=== PATIENT | female | born 1950 | race American Indian/Alaskan Native ===

== ENCOUNTER → 2017-10-22 16:59 | Outpatient (CLI) | payer MEDICARE, OTHER, SELFPAY ==
[2017-10-22 18:08] LABS: AST(SGOT) 14 U/L (15-37); Alanine Aminotransfer ALT/SGPT 21 U/L (13-56); Alkaline Phosphatase 96 U/L (45-117); Globulin 3.2 g/dL (2.2-4.2); Protein, Total 7.2 g/dL (6.4-8.2)
== END ==
PROVIDERS: Family Provider Family Medicine; PCP Family Medicine; Visit Provider Family Medicine
DX: K75.9 Inflammatory liver disease, unspecified (principal)
CPT/HCPCS: 36415; 80076

== ENCOUNTER → 2018-02-04 14:03 | Outpatient (CLI) | payer MEDICARE, OTHER, SELFPAY ==
[2014-09-22 04:00] VITALS: BMI 34.2
--- NOTE | 2018-02-04 14:14 | RAD_ITS ---
STUDY: X-RAY - FACIAL BONES REASON FOR STUDY: Female, 67 years old. Left facial pain following a fall. TECHNIQUE: 3 view(s) of the facial bones. COMPARISON: None. FINDINGS: Normal bilateral frontozygomatic and zygomatic-temporal arches. Normal bilateral medial and inferior orbital melendrez. Normal bilateral orbits. Normal visualized nasal bones. Normal anterior nasal spine. The remaining visualized osseous structures are normal. Normal visualized paranasal sinuses. RAD/Facial Bones min 3 Views IMPRESSION: Normal x-ray examination of the facial bones. Electronically Signed: Nicholas España MD at 14:36 EST Tel [phone], Service support ,
== END ==
PROVIDERS: Family Provider Family Medicine; PCP Family Medicine; Referring Provider Family Medicine; Visit Provider Family Medicine
DX: R51 Headache (principal)
CPT/HCPCS: 70150

== ENCOUNTER → 2018-02-11 10:14 | Outpatient (CLI) | payer MEDICARE, SELFPAY ==
[2014-09-22 04:00] VITALS: BMI 34.2
--- NOTE | 2018-02-11 10:19 | BI_ITS ---
MAMMOGRAPHY - BILATERAL SCREENING 3-D RAQUEL SYNTHESIS REASON FOR EXAM: Female, 67 years old. Bilateral Screening 3-D tomosynthesis PERTINENT HISTORY: No significant family history. TECHNIQUE: 2-D mammograms and 3-D Raquel synthesis of the breast (s) were performed. CAD was performed. COMPARISON: None. FINDINGS: The breast composition is heterogeneous fibroglandular pleural tissue which may obscure tiny masses. No obvious spiculated lesion, microcalcifications, skin thickening or nipple retraction. Benign calcifications present bilaterally. Benign-appearing lymph nodes seen in the axillary areas bilaterally. Impression negative distal mammography of both breasts BI/SCREENING MAMM (CAD), BILAT IMPRESSION: No mammographic signs of malignancy. Routine yearly mammograms recommended. ASSESSMENT CATEGORY: BIRADS Category 1: Negative. A letter regarding these results will be sent to the patient by the facility within 30 days. FOLLOW UP RECOMMENDATION: Yearly follow up mammogram recommended. (A) Approximately 10% of breast cancers are not detected by mammography. A normal mammogram should not delay biopsy of a clinically suspicious abnormality. Electronically Signed: Amilcar Patiño, at 14:23 EST Tel , Service support ,
== END ==
PROVIDERS: Family Provider Family Medicine; PCP Family Medicine; Visit Provider Family Medicine
DX: Z12.31 Encounter for screening mammogram for malignant neoplasm of breast (principal)
CPT/HCPCS: 77063; 77067

== ENCOUNTER → 2018-03-18 10:20 | Outpatient (CLI) | payer MEDICARE, OTHER, SELFPAY ==
[2014-09-22 04:00] VITALS: BMI 34.2
[2018-03-18 12:37] LABS: Microalbumin,Random Urine 6.6 mg/L (NO RANGE EST.); Microalbumin:Creatinine Ratio 34.4 mg/g CRE (<30 mg/g CRE)
[2018-03-18 12:48] LABS: ALB/GLOB Ratio 1.4 RATIO (0.9-2.4); AST(SGOT) 13 U/L (15-37); Alanine Aminotransfer ALT/SGPT 21 U/L (13-56); Albumin, Serum 3.7 g/dL (3.2-5.0); Alkaline Phosphatase 94 U/L (45-117); Anion Gap 9 (5-15); BUN 12 mg/dL (7-18); BUN/Creat Ratio 16.8 RATIO (10-20); Calcium,Total 8.9 mg/dL (8.5-10.1); Chloride 104 mmol/L (98-107); Cholesterol 190 mg/dL (200); Creatinine, Serum 0.72 mg/dL (0.55-1.02); EST Glomerular Filtration Rate 86 mL/min (>60); Est Glom Filt Rate - Afr Amer 104 mL/min (>60); Free T3 1.8 pg/mL (2.18-3.98); Globulin 2.7 g/dL (2.2-4.2); Glucose 92 mg/dL (74-106); High Density Lipoprotein 46 mg/dL; Potassium 4.1 mmol/L (3.5-5.1); Protein, Total 6.4 g/dL (6.4-8.2); Sodium Level 140 mmol/L (136-145); T4 Free Direct 0.92 ng/dL (0.76-1.46); Thyroid Stim Hormone (TSH) 1.75 uIU/mL (0.358-3.74); Triglycerides 171 mg/dL; Very Low Density Lipoprotein 34 mg/dL (5-40)
== END ==
PROVIDERS: Family Provider Family Medicine; PCP Family Medicine; Visit Provider Family Medicine
DX: E06.3 Autoimmune thyroiditis (principal); I10 Essential (primary) hypertension
CPT/HCPCS: 60699; 36415; 80053; 80061; 82043; 82570; 84439; 84443; 84481

== ENCOUNTER → 2018-05-26 15:15 | Outpatient (CLI) | payer MEDICARE, OTHER, SELFPAY ==
[2014-09-22 04:00] VITALS: BMI 34.2
== END ==
PROVIDERS: Family Provider Family Medicine; PCP Family Medicine; Referring Provider Family Medicine; Visit Provider Family Medicine
DX: R39.9 Unspecified symptoms and signs involving the genitourinary system (principal)
CPT/HCPCS: 87077; 87086; 87088; 87186

== ENCOUNTER 2018-07-25 15:30 | Outpatient (RCR) | payer MEDICARE, OTHER, SELFPAY ==
--- NOTE | 2018-05-20 15:25 | HP.PTEVAL_ITS ---
Patient's Visit Information RUBEN NEWELL is a 67 year old F referred to Physical Therapy by Shawn Kohler MD with a diagnosis of R knee pain. Date of Evaluation: 05/20/18 Physical Therapist: Magdy Jeffery DPT - Visit Plan Frequency: 1x/Week Duration: 10 weeks Plan: Start with BLE strengthening in aquatic setting, strengthening fo quads, glute med, glute max. - Subjective Findings: Pt. is here today for her initial evaluation with diagnosis of R knee pain. Pt. reports having increased pain since Jan, but did have decreased pain for ~1 month. She then stepped over a bleacher at a wrestling match and the next day her pain was really bad. Pt. reports increased pain with walking, standing, squating, and pressure on her knee. Decreased pain with arthritis med, biofreeze and sitting. Pt. denies N/T in either LEs. - Pain R knee Pain Intensity (Out of 10): 2 - Objective POSTURE: Pt. has slight increase in B knee valgus in stance. Pt. has slight increase in L sided wt. shifting. Pt. lacks TKE in stance, but is able to achieve. PALAPTION: Pt. has icnreased pain at R medial joint line and pes anserine region. No pain at lateral joint line or popliteal fossa. NEURO: normal throughout. ROM: R knee 0-0-114deg (tightness), L knee 0-0-118deg. Pt. has tightness noted in bilateral quads and HS. MMT: LLE- ankle 5/5 throughout; knee- ext 5-/5, flexion 5-/5; hip- flexion 4+/5, abd 4/5, ext 4/5. RLE- ankle 5/5 throughout; knee- ext 4+/5 (mild increase NE), flexion 4+/5; hip- flexion 4/5, abd 4/5, ext 4/5. Core strength- poor. GAIT: Pt. has slight antalgic pattern during R stance phase of gait. Pt. has normalized gait pattern other nguyen. Pt. is able to negotiate steps with reciprocal pattern with slight functional weakness with descending steps during R stance phase. - Special Tests R Knee Gary - Meniscus: Positive R Knee Disco Test - Meniscus: Positive R Knee Gucci - ACL: Negative R Knee Posterior Sag - PCL: Negative R Knee Valgus - MCL: Negative R Knee Varus - LCL: Negative R Knee Patellar Apprehension - PFS: Negative - Goals Goal 1:: Pt. to be I with HEP. Goal Time Frame: 4-6 Weeks Goal 2:: Pt. to have improved gait pattern without increase in symptoms for unlimited distances. Goal Time Frame: 4-6 Weeks Goal 3:: Pt. to negotiate steps with reciprocal pattern with 1 HR without increase in symptoms. Goal Time Frame: 4-6 Weeks Goal 4:: Pt. to have increased BLE and core strength by 1/2 grade of all effected musculature. Goal Time Frame: 4-6 Weeks Goal 5:: Pt. to sleep throughout the night without increase in symptoms allowing for increased quality of life. Goal Time Frame: 4-6 Weeks - Rehabilitation Potential Physical Therapy Diagnosis: Pt. has signs and symptoms consistent with R knee pain. She has increased symptoms at medial joint line and pes anserine region. Pt. has decent ROM with slight increased symptoms with increased flexion. Pt. has some positive test wtih meniscal involvement, but could also be OA, hard to distinguish. Pt. would benefit from BLE and core strengthening to reduce stress applied to R knee with all functional mobility. Rehabilitation Potential: Good - Anticipated Interventions Patient/Client Instruction: Educate patient on: Condition, Plan of Care, Risk Factors, Benefits of Fitness Program For the Purpose of:: To improve decision making, To facilitate caregiver knowledge, To improve self management, To prevent re-injury, To improve ability to perform tasks related to life management, To improve tolerance to ADL's Therapeutic Exercise to Include: Strength training, Endurance training, Agility training, Body mechanics, Postural training, In an aquatic setting, Active ROM, Dynamic Lumbar Stabilization For the Purpose of:: To decrease pain, To increase ROM, To improve nutrient delivery to tissue, To increase oxygenation perfusion, To improve muscle performance and motor function, To improve performance and independence with ADL's, To decrease level of supervision to perform tasks, To improve ability of physical actions for home/community/work/leisure, To improve gait and locomotor functions Ultrasound (thermal/non thermal): Yes For the Purpose of:: To decrease pain, To decrease swelling/inflammation, To increase ROM Thank you for the opportunity to evaluate your patient. For Medicare and Medicare HMO plans, please review the plan of care and approve it. It will need to be FAXED BACK to us at [phone] for Medicare purposes. For Medicare only, by signing this I certify the plan of care. Please let me know if there are questions or concerns regarding this plan of care. Physician Signature: Date:
--- NOTE | 2018-07-29 09:01 | HP.PTDCSUM ---
HP - PT D/C Summary It has been my pleasure to treat RUBEN NEWELL under orders from Shawn Kohler MD, for the diagnosis of R knee pain for a total of 9 visit(s). Discharge Date: Please see the following information for a summary of their discharge status. - Subjective Subjective: Pt. reports being 95% better overall. Pt. reports having aquatic exercise HEP handout and plans to continue in pool on own. - Pain R knee Pain Intensity (Out of 10): 0 - Overall Improvement % Improvement: 95 - Objective Objective/Function: ROM: 0-4-120deg. MMT- 5-/5 throughout. GAIT: pt. ambulates with imrpoved pattern, no antalgic pattern noted. Pt. reprots being pleased with PT. Pt. has exercises for pool and plans to continue on her own. - Goals Goal 1:: Pt. to be I with HEP. Goal Progress: Goal Met Goal 2:: Pt. to have improved gait pattern without increase in symptoms for unlimited distances. Goal Progress: Goal Met Goal 3:: Pt. to negotiate steps with reciprocal pattern with 1 HR without increase in symptoms. Goal Progress: Goal Met Goal 4:: Pt. to have increased BLE and core strength by 1/2 grade of all effected musculature. Goal Progress: Goal Met Goal 5:: Pt. to sleep throughout the night without increase in symptoms allowing for increased quality of life. Goal Progress: Goal Met - Plan Plan: Pt. to be DC from PT at this point intime. - D/C Information If there are questions or concerns regarding this patient's physical therapy, please feel free to call me at [phone]. Thank you for the referral of this patient. Sincerely, Magdy Jeffery DPT
== END 2018-07-25 19:00 | disposition home or self-care (01) ==
LOC: PT 15:30
PROVIDERS: Family Provider Family Medicine; PCP Family Medicine; Referring Provider Family Medicine; Visit Provider Family Medicine
DX: M25.562 Pain in left knee (principal); M25.561 Pain in right knee; R29.3 Abnormal posture
CPT/HCPCS: 97035; 97113; 97161; 97530

== ENCOUNTER → 2019-01-06 16:43 | Outpatient (CLI) | payer MEDICARE, OTHER, SELFPAY ==
--- NOTE | 2019-01-06 16:47 | CT_ITS ---
STUDY: CT ABDOMEN AND PELVIS WITH CONTRAST REASON FOR EXAM: Female, 68 years old. Flareup, diverticulitis. RADIATION DOSAGE (If Supplied By Facility): CTDIvol = ( 13.71 ) mGy, DLP = ( 826.46 ) mGycm TECHNIQUE: Transaxial images were obtained from the dome of the diaphragm to the symphysis pubis with oral contrast. IV/Oral Isovue 300 100 was administered. Sagittal and coronal images were reconstructed. Individualized dose optimization techniques were used for this CT. COMPARISON: CT of the abdomen and pelvis, August 22, 2014. FINDINGS: The visualized lung bases are unremarkable. The visualized portions of the heart are within normal limits. Normal liver. Gallbladder is not visualized. Surgically absent. Normal spleen. Normal pancreas. Normal bilateral adrenal glands. Normal right kidney. Normal left kidney. Normal visualized ureters. Normal visualized stomach. Normal small intestine. There is scattered colonic diverticuli, most marked in the descending and sigmoid colon without evidence of acute inflammatory process. The appendix is visualized and appears normal. Normal abdominal aorta. Normal inferior vena cava. Normal retroperitoneum. Normal urinary bladder. Normal vaginal cuff. There is no pelvic lymphadenopathy. No free air or free fluid is seen within the peritoneal cavity. Umbilical hernia of omental fat. The abdominal wall is otherwise unremarkable. There are diffuse degenerative changes of the visualized lumbar spine. CT/Abdomen/Pelvis WITH Contrast IMPRESSION: 1. Diverticulosis without evidence of diverticulitis. 2. No evidence of an ascending colonic mass as suspected on the prior CT. There is evidence of a lipoma adjacent to the ileocecal region. 3. No other major interval change. Electronically Signed: Aram Bueno DO at 23:30 EST Tel [phone], Service support ,
== END ==
PROVIDERS: Family Provider Family Medicine; PCP Family Medicine; Referring Provider Family Medicine; Visit Provider Family Medicine
DX: K57.92 Diverticulitis of intestine, part unspecified, without perforation or abscess without bleeding (principal)
CPT/HCPCS: 74177; Q9967

== ENCOUNTER → 2019-02-17 12:29 | Outpatient (CLI) | payer MEDICARE, OTHER, SELFPAY ==
--- NOTE | 2019-02-17 12:31 | BI_ITS ---
MAMMOGRAPHY - BILATERAL SCREENING REASON FOR EXAM: Female, 68 years old. Routine annual screening examination. PERTINENT HISTORY: Non-contributory. Remote left excisional breast biopsy. TECHNIQUE: Digital bilateral breast raquel (3D mammographic acquisition) in the CC and MLO projections. 2-D mediolateral oblique (MLO) and craniocaudad (CC) views of both breasts were obtained. CAD: Full Field Digital Mammography with Computer Added Detection was performed. COMPARISON: Comparison is made with prior study dated February 11, 2018. FINDINGS: Breast Composition: The breasts are heterogeneously dense, which may obscure small masses. There are no dominant masses or suspicious calcifications. Stable benign-appearing bilateral axillary lymph nodes. No other significant abnormalities are identified. There has been no significant change since the prior study. BI/SCREEN MAMM (CAD) W/RAQUEL BILAT IMPRESSION: Stable bilateral screening mammogram. Yearly follow-up mammogram recommended. (A) ASSESSMENT CATEGORY: BIRADS Category 2: Benign. A letter regarding these results will be sent to the patient by the facility within 30 days. Approximately 10% of breast cancers are not detected by mammography. A normal mammogram should not delay biopsy of a clinically suspicious abnormality. [id number] Electronically Signed: Nicholas España, at 14:08 EST , Service support ,
== END ==
PROVIDERS: Family Provider Family Medicine; PCP Family Medicine; Referring Provider Family Medicine; Visit Provider Family Medicine
DX: Z12.31 Encounter for screening mammogram for malignant neoplasm of breast (principal)
CPT/HCPCS: 77063; 77067

== ENCOUNTER → 2019-03-19 11:28 | Outpatient (CLI) | payer MEDICARE, OTHER, SELFPAY ==
[2014-09-22 04:00] VITALS: BMI 34.2
[2019-03-19 12:35] LABS: ALB/GLOB Ratio 1.2 RATIO (0.9-2.4); AST(SGOT) 10 U/L (15-37); Alanine Aminotransfer ALT/SGPT 19 U/L (13-56); Albumin, Serum 3.8 g/dL (3.2-5.0); Alkaline Phosphatase 104 U/L (45-117); Anion Gap 4 (5-15); BUN 7 mg/dL (7-18); BUN/Creat Ratio 8.4 RATIO (10-20); Calcium,Total 9.2 mg/dL (8.5-10.1); Chloride 107 mmol/L (98-107); Cholesterol 176 mg/dL (200); Creatinine, Serum 0.83 mg/dL (0.55-1.02); EST Glomerular Filtration Rate 72 mL/min (>60); Est Glom Filt Rate - Afr Amer 87 mL/min (>60); Free T3 2.3 pg/mL (2.18-3.98); Globulin 3.3 g/dL (2.2-4.2); Glucose 93 mg/dL (74-106); High Density Lipoprotein 46 mg/dL; Potassium 3.8 mmol/L (3.5-5.1); Protein, Total 7.1 g/dL (6.4-8.2); Sodium Level 140 mmol/L (136-145); T4 Free Direct 0.88 ng/dL (0.76-1.46); Thyroid Stim Hormone (TSH) 2.08 uIU/mL (0.358-3.74); Triglycerides 188 mg/dL; Very Low Density Lipoprotein 38 mg/dL (5-40)
[2019-03-19 14:29] LABS: Microalbumin,Random Urine < 5.0 mg/L (NO RANGE EST.)
== END ==
PROVIDERS: PCP Family Medicine; Referring Provider Family Medicine; Visit Provider Family Medicine
DX: I10 Essential (primary) hypertension (principal); E06.3 Autoimmune thyroiditis
CPT/HCPCS: 36415; 80053; 80061; 82043; 82570; 84439; 84443; 84481

== ENCOUNTER 2019-11-02 12:09 | Day surgery (SDC) | payer MEDICARE, OTHER, SELFPAY ==
--- NOTE | 2019-10-26 13:09 | EKG12_ITS ---
Test Reason : PREOP Blood Pressure : / mmHG Vent. Rate : 091 BPM Atrial Rate : 091 BPM P-R Int : 158 ms QRS Dur : 092 ms QT Int : 344 ms P-R-T Axes : 058 -06 011 degrees QTc Int : 423 ms Normal sinus rhythm Normal ECG Confirmed by ELADIO DICKERSON, IVANNA ([id number]), deputy editor in chief KEVIN DISLA ([id number]) on 10/27/2019 9:22:50 AM Referred By: DARREL Confirmed By:IVANNA HENDRICKS MD
[2019-10-28 15:34] LABS: Hematocrit 46.7 % (37-47); Hemoglobin 14.6 g/dL (12.0-15.0); Mean Corp Hgb Conc 31.3 g/dL (32-36); Mean Corpuscular Hgb 28.7 pg (27.0-32.0); Mean Corpuscular Volume 91.7 fL (81-99); Mean Platelet Vol. 9.9 fl (6.2-12.0); Platelet Count 398 K/mm3 (150-450); RBC Distribution Width CV 13.2 % (11.6-14.6); RBC Distribution Width SD 45.1 fl (35.1-43.9); Red Blood Count 5.09 M/mm3 (4.2-5.4); White Blood Count 7.9 K/mm3 (4.4-11.0)
[2019-10-28 15:55] LABS: International Normalized Ratio 1.1; Prothrombin Time (Protime)PT. 13.3 SECONDS (11.7-14.9)
[2019-10-28 15:56] LABS: Partial Thromboplast Time 31.2 Seconds (24.1-36.2)
[2019-10-28 16:26] LABS: ALB/GLOB Ratio 1.2 RATIO (0.9-2.4); AST(SGOT) 14 U/L (15-37); Alanine Aminotransfer ALT/SGPT 19 U/L (13-56); Alkaline Phosphatase 102 U/L (45-117); Anion Gap 5 (5-15); BUN 8 mg/dL (7-18); BUN/Creat Ratio 9.4 RATIO (10-20); Calcium,Total 9.1 mg/dL (8.5-10.1); Chloride 105 mmol/L (98-107); Creatinine, Serum 0.85 mg/dL (0.55-1.02); EST Glomerular Filtration Rate 70 mL/min (>60); Est Glom Filt Rate - Afr Amer 84 mL/min (>60); Globulin 3.2 g/dL (2.2-4.2); Glucose 97 mg/dL (74-106); Potassium 3.6 mmol/L (3.5-5.1); Protein, Total 7.2 g/dL (6.4-8.2); Sodium Level 139 mmol/L (136-145); Thyroid Stim Hormone (TSH) 1.68 uIU/mL (0.358-3.74)
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
[2019-11-02] VITALS (11 sets, daily range): BP systolic 120–165; BP diastolic 54–90; PULSE 61–113; RESP 14–18; TEMP 36.3–36.8; O2SAT 94–100; BMI 32.5
[2019-11-02] MEDS: Lactated Ringers 1,000 ML 100 ML IV (12:38)
--- NOTE | 2019-11-02 13:25 | PCM.OPRPT ---
Report of Operation Date of Procedure: 11/02/19 Pre-Operative Diagnosis: Vaginal Vault Prolapse, Cystocele, Rectocele Post-Operative Diagnosis: Vaginal Vault Prolapse, Cystocele, Rectocele Surgery/Procedure Performed:: Anterior and Posterior Repair Description of Surgical Findings:: Small cystocele that protruded to within 2 cm of the introitus. Majority of prolapse was rectocele which protruded approximately 3 to 4 cm outside the introitus at rest. perioperative manager: Wilman Melton perioperative manager: Luis Alfredo Porras Type of Anesthesia:: General - LMA Anesthesiologist: Celestino Esteban Specimen's removed: Vaginal mucosa Drains: Henriquez to straight drain Estimated Blood Loss (mL): 100 cc Fluids Replaced: Crystalloid Description of Procedure: Surgeon: Kapil Deleon MD, FACOG Indications: This is a 69-year-old patient who is been having problems with vaginal pressure and bulging. Conservative measures have not been helpful. Given this the patient desires that we proceed the above procedure. She has been counseled regarding the risk and indications of this procedure including the possibility of bleeding, infection, and injury to surrounding structures such as bowel bladder. All questions were answered. Procedure: Patient was taken to the operating room where after induction of general anesthesia she was placed in the dorsal lithotomy position and prepped and draped in the usual sterile fashion. The bladder was drained of approximately 50 cc of clear yellow urine with red rubber catheter. Anterior vaginal mucosa was undermined and divided and then imbricated toward the midline with interrupted 0 Vicryl sutures. Vaginal mucosa was trimmed and then closed with interrupted 2-0 chromic suture. Vaginal cuff was then closed front to back with interrupted [id number] 0 Vicryl suture. Hemostasis was noted. Attention was turned toward the posterior repair portion of the procedure. Remnants of the hymenal ring were grasped with Allises and a V-shaped incision was made in the perineum. Rectovaginal mucosa was then undermined divided and attempts were made to place a sacrospinous stitch on the right sacrous spine x3 with 0 Prolene suture but this was unsuccessful due to the suture pulling through the ligament. Vaginal mucosa was then imbricated toward the midline with interrupted 0 Vicryl suture. Vaginal mucosa was trimmed and then closed with running locked 2-0 chromic suture. Remnants of the bulbocavernosus muscles were identified and brought toward the midline with a single [id number] 0 Vicryl suture and perineum was closed in the usual fashion with running and subcuticular, and [id number] 2-0 chromic suture. Hemostasis was noted. Henriquez catheter was placed and clear yellow urine was noted. Vagina was packed with a single half-inch iodoform tape. Patient tolerated the procedure well was taken to recovery room in satisfactory condition; sponge instrument and needle counts were all reportedly correct. Estimated blood loss for the case was 100 cc. Cefotan 2 g IV was given prior to beginning the operative procedure. There were no apparent complications of the surgery. Specimen to pathology was vaginal mucosa. Grafts/Implants Used: None - Complications None - Admit VTE Documentation VTE Present on Admission: Yes VTE Mechan Device Prophylaxis: SCD's VTE Pharm Prophylaxis ordered?: Yes
--- NOTE | 2019-11-02 13:40 | VAGMU_PTH ---
PATIENT: RUBEN NEWELL LOC: [facility] – [place], [place] U#:[id number] AGE/SX: 69/F ROOM: RE11/02/[address]: Dr. Kapil Deleon MD : [id number] BED: DIS: 11/03/2019 SPEC #: [id number] RECD: 11/02/19 15:32 STATUS: ALONDRA TELLO #: [id number] RAFAEL: 11/02/19 13:[address]: Kapil Deleon DEPT: SURGICAL PATHOLOGY RECD BY: Prabhu Bravo ENTERED: 11/03/19 09:12 SP TYPE: VAG MUCOSA OTHR DR: Dr. Shawn Kohler MD Tissues: Vagina, NOS Procedures: Surgery Specimen Level II HEADER OPERATION: Anterior and posterior repair PRE-OP DIAGNOSIS: Vaginal vault prolapse, cystocele, rectocele TISSUE SUBMITTED: Vaginal mucosa MICROSCOPIC DIAGNOSIS Vaginal mucosa, anterior and posterior repair: Mild chronic inflammation and hyperkeratosis. No evidence of dysplasia. AM:cedric 11/04/19 MICROSCOPIC DESCRIPTION Slides are reviewed. GROSS DESCRIPTION Received in fixative is one container labeled with the patient's name and designated vaginal mucosa. The specimen consists of two pieces of jara mucosal tissue that in aggregate measure 9 x 5 x 0.4 cm. Three smaller pieces of jara mucosal tissue and adipose tissue are also noted measuring in aggregate 3.5 x 1.5 x 0.3 cm. No mucosal lesion is identified. Multiple instrumentation terrazas are noted. Delinquent Notice Machine Operator sections are submitted in one cassette. / SJ:cedric 11/03/19 TC:3 CPT: 48592
--- NOTE | 2019-11-02 15:10 | DCINST_ITS ---
Discharge Diet: No Restrictions Discharge Activity: Return to Normal Activity, May Not Drive - while taking narcotic pain medications., May Shower May resume sexual activity in: 6-8 weeks Call your doctor if your incision/area has: Continuous Slow Oozing, Sudden Increased Bleeding, Increased Pain/ Swelling, Increased Redness, Foul Smelling Discharge Call your doctor if you observe: Fever of 101 or Higher, Inability to urinate, Inability to have a bowel movement, Using more than one pad per hour Allergies/Adverse Reactions: Allergies Iodinated Contrast Media [Iodinated Contrast Media - IV Dye] Allergy (Verified 11/02/19 12:24) Itching latex Allergy (Verified 11/02/19 12:24) Itching metronidazole [From Flagyl] Allergy (Verified 11/02/19 12:24) Other pt unsure nitrofurantoin [From Macrobid] Allergy (Verified 11/02/19 12:24) Chest tightness EXTREME ANXIETY shellfish derived Allergy (Verified 11/02/19 12:24) Swelling Sulfa (Sulfonamide Antibiotics) Allergy (Verified 11/02/19 12:24) Rash aspartame Adverse Reaction (Verified 11/02/19 12:24) Other headache Medications to take at Discharge Cholecalciferol (VIT D3) [Vitamin D3] 2,000 unit PO DAILY 09/21/14 Diclofenac [Voltaren] 75 mg PO DAILY 09/21/14 Esomeprazole Mag Trihydrate [Nexium] 20 mg PO DAILY 09/21/14 L.acidoph,Paracasei, B.lactis [Probiotic] 1 each PO DAILY 09/21/14 Liothyronine Sodium [Cytomel] 5 mcg PO DAILY 09/21/14 Multivitamins,Ther W-Minerals [Multivitamin With Minerals ([facility])] 1 tablet PO DAILY 09/21/14 Zeaxanthin 3 tab PO DAILY 09/21/14 Estradiol 42.5 gm VG .TWICE WEEKLY 10/22/19 Lutein 75 mg PO DAILY 10/22/19 Docusate Sodium [Colace] 100 mg PO BID PRN PRN #60 cap 11/02/19 Oxycodone [Oxyir] 5 mg PO Q6H PRN PRN 7 Days #10 tab 11/02/19 The following prescriptions were given: Docusate Sodium [Colace] 100 mg PO BID PRN PRN #60 cap PRN Reason: Constipation Transmission Status: Received by [facility] Oxycodone [Oxyir] 5 mg PO Q6H PRN PRN 7 Days #10 tab PRN Reason: Pain Score 6-10/10 Transmission Status: Received by [facility] Primary Care Physician: Shawn Kohler MD [Primary Care Provider] - Test Results: Test results from this visit will be discussed in further detail at your follow- up appointment, if applicable. Please Follow Up With: Kapil Deleon MD When: 2 to 3 weeks
[2019-11-02] MEDS: Dextrose 5%-Lactated Ringers 1,000 ML 125 ML IV ×2 (15:56→20:11)
[2019-11-02] MEDS: HYDROmorphone 0.5 MG/0.5 ML SYRINGE IV (17:28)
[2019-11-02] MEDS: oxyCODONE 5 MG Tablet PO (18:37)
[2019-11-02] MEDS: Enoxaparin 30 MG/0.3 ML Syringe SC (20:12)
[2019-11-03 00:32] VITALS: BP 126/52; PULSE 74; RESP 16; TEMP 36.9; O2SAT 94
[2019-11-03] MEDS: oxyCODONE 5 MG Tablet PO (03:40)
[2019-11-03] MEDS: 0.9% Saline Lock 10 ML Syringe IV (04:43)
[2019-11-03 05:03] VITALS: BP 151/66; PULSE 71; RESP 16; TEMP 36.9; O2SAT 94
[2019-11-03 06:58] LABS: Creatinine, Serum 0.87 mg/dL (0.55-1.02); EST Glomerular Filtration Rate 68 mL/min (>60); Est Glom Filt Rate - Afr Amer 83 mL/min (>60); Estimated Creatinine Clearance 44.76 ml/min
[2019-11-03 07:32] VITALS: O2SAT 94
[2019-11-03 08:33] VITALS: BP 128/82; PULSE 85; RESP 16; TEMP 36.9; O2SAT 96
[2019-11-03] MEDS: Pantoprazole Sodium 20 MG Tablet PO (08:35)
--- NOTE | 2019-11-03 08:38 | PN.OBGYN_ITS ---
Subjective: Patient without complaints. Tolerating diet well. Henriquez catheter is out and patient able to void. Minimal vaginal bleeding reported. Objective: Vaginal pack is out with minimal bleeding noted. Creatinine is okay. CBC still pending. - Physical Exam Vitals/I&O's: Vital Signs Temp Pulse Resp BP Pulse Ox 98.4 F 85 16 128/82 H 96 11/03/19 08:33 11/03/19 08:33 11/03/19 08:33 11/03/19 08:33 11/03/19 08:33 Oxygen Delivery Method Room Air Weight: 172 lb 9.951 oz Body Mass Index (BMI) 32.5 Intake and Output for Last 24 Hours 11/01/19 11/02/19 11/03/19 23:59 23:59 23:59 Intake Total 1702.08 / 2202.08 1978.17 / 1978.17 Output Total 650 / 1950 1900 / 1900 Balance 1052.08 / 252.08 79.17 / 79.17 Laboratory Results 11/03/19 06:00: WBC Pending, RBC Pending, Hgb Pending, Hct Pending, MCV Pending, MCH Pending, MCHC Pending, RDW Std Deviation Pending, RDW Coeff of Yulisa Pending, Plt Count Pending 11/03/19 06:00: Creatinine 0.87, Estim Creat Clear Calc 44.76, Est GFR (MDRD) Af Amer 83, Est GFR (MDRD) Non-Af 68 Current Medications Docusate Sodium (Colace) 100 mg PO BID PRN PRN PRN Reason: Constipation Hydromorphone HCl (Dilaudid Inj) 0.5 mg IV Q3H PRN PRN PRN Reason: Pain Score 1-1010 Last Admin: 11/02/19 17:28 Dose: 0.5 mg Documented by: Liothyronine Sodium (Cytomel) 5 mcg PO DAILY [facility]BER Last Admin: 11/03/19 08:35 Dose: 5 mcg Documented by: Ondansetron HCl (Zofran) 4 mg IV Q4H PRN PRN PRN Reason: NAUSEA Oxycodone HCl (Oxyir) 5 mg PO Q6H PRN PRN PRN Reason: Pain Score 1-10/10 Last Admin: 11/03/19 03:40 Dose: 5 mg Documented by: Pantoprazole Sodium (Protonix) 20 mg PO DAILY [facility] Last Admin: 11/03/19 08:35 Dose: 20 mg Documented by: Simethicone (Mylicon) 80 mg PO [facility] Last Admin: 11/03/19 08:35 Dose: 80 mg Documented by: Sodium Chloride () 10 - 40 ml IV UD PRN PRN Reason: SALINE FLUSH Last Admin: 11/03/19 04:43 Dose: 10 ml Documented by: Medical Necessity - Tobacco Use Smoking Status: Former smoker Tobacco Use: Non-smoker Assessment/Plan All Active Problems Abdominal pain (Acute) Doing well postoperative day #1 status post anterior posterior repair. Will discharge to home with routine instructions.
[2019-11-03 14:41] LABS: Hematocrit 38.6 % (37-47); Hemoglobin 12.3 g/dL (12.0-15.0); Mean Corp Hgb Conc 31.9 g/dL (32-36); Mean Corpuscular Hgb 28.7 pg (27.0-32.0); Mean Platelet Vol. 10.6 fl (6.2-12.0); Platelet Count 361 K/mm3 (150-450); RBC Distribution Width CV 13.2 % (11.6-14.6); RBC Distribution Width SD 43.5 fl (35.1-43.9); Red Blood Count 4.29 M/mm3 (4.2-5.4); White Blood Count 12.7 K/mm3 (4.4-11.0)
== END 2019-11-03 10:24 | disposition home or self-care (01) ==
LOC: SDC 12:09 → AC 12:10 → MS3 13:37
PROVIDERS: Anesthesiology; PCP Family Medicine; Referring Provider Obstetrics & Gynecology; Visit Provider Obstetrics & Gynecology
PROC: (CPT 57260; principal; 2019-11-02 13:25)
DX: N81.11 Cystocele, midline (principal); N81.6 Rectocele; Z11.59 Encounter for screening for other viral diseases; M19.90 Unspecified osteoarthritis, unspecified site; E06.3 Autoimmune thyroiditis; R01.1 Cardiac murmur, unspecified; Z79.899 Other long term (current) drug therapy; Z87.891 Personal history of nicotine dependence; I10 Essential (primary) hypertension; K21.9 Gastro-esophageal reflux disease without esophagitis
CPT/HCPCS: 00942; 57260; 36415; 80053; 82565; 84443; 85027; 85610; 85730; 86850; 86900; 86901; 87635; 88302; 88304; 93005; 94799; 99251; J7120; A4216; G0463; J2405; U0003

== ENCOUNTER → 2020-02-19 12:15 | Outpatient (CLI) | payer MEDICARE, OTHER, SELFPAY ==
[2019-11-02 17:32] VITALS: BMI 32.5
--- NOTE | 2020-02-19 12:17 | BI_ITS ---
MAMMOGRAPHY - BILATERAL SCREENING REASON FOR EXAM: Female, 69 years old. Routine annual screening examination. PERTINENT HISTORY: Remote left excisional breast biopsy. TECHNIQUE: Digital bilateral breast raquel (3D mammographic acquisition) in the CC and MLO projections. 2-D mediolateral oblique (MLO) and craniocaudad (CC) views of both breasts were obtained. CAD: Full Field Digital Mammography with Computer Added Detection was performed. COMPARISON: Comparison is made with prior study dated 02/17/2019 and 02/11/2018. FINDINGS: Breast Composition: The breasts are heterogeneously dense, which may obscure small masses. There are no dominant masses or suspicious calcifications. Stable benign appearing bilateral axillary lymph nodes. No other significant abnormalities are identified. There has been no significant change since the prior study. BI/SCREEN MAMM (CAD) W/RAQUEL BILAT IMPRESSION: Stable bilateral screening mammogram. Yearly follow-up mammogram recommended. (A) ASSESSMENT CATEGORY: BIRADS Category 2: Benign. A letter regarding these results will be sent to the patient by the facility within 30 days. Approximately 10% of breast cancers are not detected by mammography. A normal mammogram should not delay biopsy of a clinically suspicious abnormality. [id number] Electronically Signed: Nicholas España, at 13:21 EST , Service support ,
== END ==
PROVIDERS: PCP Family Medicine; Referring Provider Family Medicine; Visit Provider Family Medicine
DX: Z12.31 Encounter for screening mammogram for malignant neoplasm of breast (principal)
CPT/HCPCS: 77063; 77067

== ENCOUNTER → 2020-07-19 16:42 | Outpatient (CLI) | payer MEDICARE, OTHER, SELFPAY ==
[2019-11-02 17:32] VITALS: BMI 32.5
[2020-07-19 18:06] LABS: Anion Gap 6 (5-15); BUN 9 mg/dL (7-18); BUN/Creat Ratio 11.6 RATIO (10-20); Calcium,Total 9.1 mg/dL (8.5-10.1); Chloride 105 mmol/L (98-107); Creatinine, Serum 0.78 mg/dL (0.55-1.02); EST Glomerular Filtration Rate 78 mL/min (>60); Est Glom Filt Rate - Afr Amer 94 mL/min (>60); Glucose 99 mg/dL (74-106); Potassium 3.5 mmol/L (3.5-5.1); Sodium Level 139 mmol/L (136-145); T4 Free Direct 0.98 ng/dL (0.76-1.46); Thyroid Stim Hormone (TSH) 1.31 uIU/mL (0.358-3.74)
[2020-07-19 18:20] LABS: Microalbumin,Random Urine 44.7 mg/L (NO RANGE EST.); Microalbumin:Creatinine Ratio 56.7 mg/g CRE (<30 mg/g CRE)
== END ==
PROVIDERS: PCP Family Medicine; Referring Provider Family Medicine; Visit Provider Family Medicine
DX: E06.3 Autoimmune thyroiditis (principal); I10 Essential (primary) hypertension
CPT/HCPCS: 36415; 80048; 82043; 82570; 84439; 84443

== ENCOUNTER → 2020-11-08 12:14 | Outpatient (CLI) | payer MEDICARE, OTHER, SELFPAY ==
[2019-11-02 17:32] VITALS: BMI 32.5
--- NOTE | 2020-11-08 12:25 | BD_ITS ---
STUDY: DUAL ENERGY X-RAY ABSORPTIOMETRY / DXA REASON FOR EXAM: Female, 70 years old. [id number]. Patient is postmenopausal. TECHNIQUE: Bone Mineral Density (BMD) measurements of lumbar spine and bilateral hips were obtained. COMPARISON: None. FINDINGS: Lumbar Spine (L1-L4): g/cm2 (1.061) / T-score (0.7) / Z-score (2.8) Findings are suggestive of normal bone density with a low fracture risk. Left Femur Total: g/cm2 (0.826) / T-score (-1.0) / Z-score (0.7) Left Femoral Neck: g/cm2 (0.694) / T-score (-1.4) / Z-score (0.5) Right Femur Total: g/cm2 (0.833) / T-score (-0.9) / Z-score (0.7) Right Femoral Neck: g/cm2 (0.657) / T-score (-1.7) / Z-score (0.2) BD/Dexa Bone Density Study IMPRESSION: The patient is considered osteopenic as outlined below according to World [employer] Organization (WHO) criteria with a moderate fracture risk. Reference Information: The T-score is the number of standard deviations above or below the standard which is normal for young adults at their peak bone mineral density. The World Health Organization (WHO) interprets the T-scores as follows: Above -1 Normal bone density Between -1 and -2.5 Osteopenia Equal to / or below -2.5 Osteoporosis As a practical clinical guideline, osteopenia may be graded as follows: Mild -1 through -1.5 Moderate -1.6 through -2.0 Severe -2.1 through -2.4 The Z-score is the number of standard deviations above or below age-matched controls. A Z-score of less than -1.5 would be considered abnormal. References: 1. NIH Osteoporosis and Related Bone Diseases www osteo.org 2. International Society for Clinical Densitometry www iscd.org 3. National Osteoporosis Foundation www nof.org Electronically Signed: Nicholas España MD at 13:27 EDT , Service support ,
== END ==
PROVIDERS: PCP Family Medicine; Referring Provider Family Medicine; Visit Provider Family Medicine
DX: Z78.0 Asymptomatic menopausal state (principal)
CPT/HCPCS: 77080

== ENCOUNTER 2021-04-03 09:00 | Outpatient (CLI) | payer MEDICARE, OTHER, SELFPAY ==
--- NOTE | 2021-04-03 09:02 | BI_ITS ---
MAMMOGRAPHY - BILATERAL SCREENING REASON FOR EXAM: Female, 70 years old. Routine annual screening examination. PERTINENT HISTORY: Non-contributory. TECHNIQUE: Digital bilateral breast raquel (3D mammographic acquisition) in the CC and MLO projections. 2-D mediolateral oblique (MLO) and craniocaudad (CC) views of both breasts were obtained. CAD: Full Field Digital Mammography with Computer Added Detection was performed. COMPARISON: Comparison is made with prior study dated 02/19/2020 and 02/17/2019. FINDINGS: Breast Composition: The breasts are heterogeneously dense, which may obscure small masses. There are no dominant masses or suspicious calcifications. Stable benign-appearing bilateral axillary lymph nodes. No other significant abnormalities are identified. There has been no significant change since the prior study. BI/SCRN MAMM (CAD)W/RAQUEL BILAT IMPRESSION: Stable bilateral screening mammogram. Yearly follow-up mammogram recommended. (A) ASSESSMENT CATEGORY: BIRADS Category 2: Benign. A letter regarding these results will be sent to the patient by the facility within 30 days. Approximately 10% of breast cancers are not detected by mammography. A normal mammogram should not delay biopsy of a clinically suspicious abnormality. [id number] Electronically Signed: Nicholas España MD at 9:48 EST ,
== END 2021-04-03 23:59 | disposition short-term general hospital (02) ==
LOC: OPBI 09:01
PROVIDERS: PCP Family Medicine; Referring Provider Family Medicine; Visit Provider Family Medicine
DX: Z12.31 Encounter for screening mammogram for malignant neoplasm of breast (principal)
CPT/HCPCS: 77063; 77067

== ENCOUNTER → 2021-06-29 | Outpatient (CLI) | payer MEDICARE, OTHER, SELFPAY ==
[2021-06-29 18:00] LABS: Anion Gap 3 (5-15); BUN 12 mg/dL (7-18); BUN/Creat Ratio 16.3 RATIO (10-20); Calcium,Total 8.8 mg/dL (8.5-10.1); Chloride 107 mmol/L (98-107); Creatinine, Serum 0.74 mg/dL (0.55-1.02); EST Glomerular Filtration Rate 82 mL/min (>60); Est Glom Filt Rate - Afr Amer 99 mL/min (>60); Glucose 98 mg/dL (74-106); Magnesium 2.2 mg/dL (1.6-2.6); Potassium 3.9 mmol/L (3.5-5.1); Sodium Level 140 mmol/L (136-145)
== END | disposition home or self-care (01) ==
LOC: MFPLAB 15:07
PROVIDERS: PCP Family Medicine; Referring Provider Family Medicine; Visit Provider Family Medicine
DX: M62.838 Other muscle spasm (principal)
CPT/HCPCS: 36415; 80048; 83735

== ENCOUNTER 2021-08-11 08:15 | Outpatient (CLI) | payer MEDICARE, OTHER, SELFPAY | END 2021-08-11 23:59 | disposition home or self-care (01) | LOC: MFPLAB 08:17 | PROVIDERS: PCP Family Medicine; Referring Provider Family Medicine; Visit Provider Family Medicine | DX: N20.0 Calculus of kidney (principal) | CPT/HCPCS: 87077; 87086; 87088; 87186 ==

== ENCOUNTER 2021-08-21 11:58 | Outpatient (CLI) | payer MEDICARE, OTHER, SELFPAY ==
[2021-08-21 15:24] LABS: Absolute Neutrophil Count 3.9 X10^3/uL (2.0-7.7); Basophil# 0.04 X10^3/uL; Basophil% 0.6 % (0-1); Eosinophil# 0.11 X10^3/uL; Eosinophils% 1.7 % (0-5); Hematocrit 42.1 % (37-47); Hemoglobin 13.4 g/dL (12.0-15.0); Lymphocyte % 27.6 % (19-41); Mean Corp Hgb Conc 31.8 g/dL (32-36); Mean Corpuscular Hgb 28.6 pg (27.0-32.0); Mean Platelet Vol. 10.7 fl (6.2-12.0); Monocyte# 0.68 X10^3/uL; Monocyte% 10.4 % (0-10); NRBC Flagged by Analyzer 0 % (0-5); Neutrophil # 3.86 X10^3/uL (2.7-7.7); Neutrophil % 59.4 % (47-70); Platelet Count 361 K/mm3 (150-450); RBC Distribution Width SD 46.1 fl (35.1-43.9); Red Blood Count 4.68 M/mm3 (4.2-5.4); White Blood Count 6.5 K/mm3 (4.4-11.0)
[2021-08-21 15:58] LABS: ALB/GLOB Ratio 1.3 RATIO (0.9-2.4); AST(SGOT) 10 U/L (15-37); Alanine Aminotransfer ALT/SGPT 18 U/L (13-56); Albumin, Serum 3.6 g/dL (3.2-5.0); Alkaline Phosphatase 74 U/L (45-117); Anion Gap 6 (5-15); BUN 8 mg/dL (7-18); BUN/Creat Ratio 8.9 RATIO (10-20); Calcium,Total 8.9 mg/dL (8.5-10.1); Chloride 106 mmol/L (98-107); EST Glomerular Filtration Rate 66 mL/min (>60); Est Glom Filt Rate - Afr Amer 79 mL/min (>60); Globulin 2.8 g/dL (2.2-4.2); Glucose 102 mg/dL (74-106); Potassium 3.4 mmol/L (3.5-5.1); Protein, Total 6.4 g/dL (6.4-8.2); Sodium Level 141 mmol/L (136-145)
[2021-08-21 16:04] LABS: Hemoglobin A1c 5.3 % (3.8-5.6)
== END 2021-08-21 23:59 | disposition home or self-care (01) ==
LOC: MFPLAB 11:59
PROVIDERS: PCP Family Medicine; Visit Provider Family Medicine
DX: R53.83 Other fatigue (principal); R39.15 Urgency of urination; R81 Glycosuria
CPT/HCPCS: 36415; 80053; 83036; 85025; 87086

== ENCOUNTER → 2021-09-05 | Outpatient (CLI) | payer MEDICARE, OTHER, SELFPAY | END | disposition home or self-care (01) | LOC: MFPLAB 14:39 | PROVIDERS: PCP Family Medicine; Visit Provider Family Medicine | DX: R39.15 Urgency of urination (principal) | CPT/HCPCS: 87086; 87088; 87186 ==

== ENCOUNTER 2022-02-14 16:46 | Emergency (ER) | payer MEDICARE, OTHER, SELFPAY ==
[2022-02-14 16:47] VITALS: BP 194/94; PULSE 68; RESP 16; TEMP 36.4; O2SAT 100; BMI 29.2
--- NOTE | 2022-02-14 17:09 | CT_ITS ---
STUDY: CT ABDOMEN AND PELVIS WITH CONTRAST REASON FOR EXAM: Female, 71 years old. LLQ pain RADIATION DOSAGE (If Supplied By Facility): CTDIvol = ( 13.73 ) mGy, DLP = ( 667.59 ) mGycm TECHNIQUE: Transaxial images were obtained from the dome of the diaphragm to the symphysis pubis with oral contrast. Oral and amp; IV Gastrografin and amp; 100mL Isovue-300 was administered. Sagittal and coronal images were reconstructed. Individualized dose optimization techniques were used for this CT. COMPARISON: January 06, 2019 CT scan abdomen and pelvis FINDINGS: The visualized lung bases are unremarkable. The visualized portions of the heart are within normal limits. Normal liver. There is non-visualization of the gallbladder, which may be secondary to either contraction or a prior cholecystectomy. There is borderline splenomegaly. Normal pancreas. Normal bilateral adrenal glands. There is mild right pelviectasis. There is mild distention of the right ureter to the level of the bladder. A stone is not visualized. This is also seen on the prior study. There is minimal left pelviectasis similar to prior study. There is a small hiatal hernia. Normal small intestine. There is visualize contrast within the colon. There is visualized diverticulosis without visualized diverticulitis. The appendix is visualized and appears normal. There is partial atherosclerotic calcification of the abdominal aorta, without a demonstrated aneurysm. Normal inferior vena cava. Normal retroperitoneum. Normal urinary bladder. There is absence of the uterus consistent with a prior hysterectomy. Normal abdominal wall. There are diffuse degenerative changes of the visualized lumbar spine. There is multilevel disc space narrowing endplate sclerosis spondylosis and vacuum phenomenon. There is visualized slight retrolisthesis T11-T12. There is visualized multilevel mild neural foramina narrowing. At the level of L3-L4 L4-L5 there is moderate to severe neural foraminal narrowing moderate to severe central stenosis. At L5-S1 there is neural foramina narrowing. There is degenerative change in the SI joints. CT/Abdomen/Pelvis WITH Contrast IMPRESSION: Nonspecific partially contrasted appearing bowel gas pattern with diverticulosis without visualized diverticulitis. Mild bilateral pelviectasis without visualized stones along the course of the ureters. Borderline splenomegaly. Advanced degenerative change of the thoracolumbar spine. No appendicitis. Status post cholecystectomy. Status post hysterectomy. Electronically Signed: Roberta Riddle MD at 19:58 EST Reading Location ID and State: [facility] / [place] Tel , Service support ,
--- NOTE | 2022-02-14 17:11 | EDS_ITS ---
HPI History of Present Illness Chief Complaint: Abd Pain Informant: patient Onset/Context/Timing Onset: Days Context: Gradual Onset Narrative Narrative: Patient presents from PCPs office secondary to diverticulitis. Patient states last week she just did not feel well all week. She went to see her doctor on Saturday and after physical exam it was noted that she had some tenderness in the left lower quadrant. Given her history of diverticulitis she was placed on Augmentin. She states yesterday she felt better and ate a couple slices of pizza. Today she feels worse again. PCP reports increased pain and guarding on exam so asked her to present to the emergency room for CT scan. Patient denies fever or chills. She denies urinary symptoms. [facility] Medical History Gallstones Jennifer's thyroiditis Hypertension Home Medications L.acidoph, paracasei,B. lactis 10 billion cell capsule 1 ea PO DAILY 09/21/14 [History Last Taken 09/20/14] cholecalciferol (vitamin D3) 25 mcg (1,000 unit) tablet (Vitamin D3) 2,000 unit PO DAILY 09/21/14 [History Last Taken 09/20/14] diclofenac sodium 75 mg tablet,delayed release 75 mg PO DAILY 09/21/14 [History Last Taken 09/20/14] esomeprazole magnesium 20 mg capsule,delayed release (Nexium) 20 mg PO DAILY 09/21/14 [History Last Taken 11/02/19] liothyronine 5 mcg tablet 5 mcg PO DAILY 09/21/14 [History Last Taken 11/02/19] multivitamin,jg-[id number]-[id number] 27 mg-0.4 mg tablet (Therems-M) 1 tab PO DAILY 09/21/14 [History Last Taken 09/20/14] zeaxanthin (bulk) 90 % powder 3 tab PO DAILY 09/21/14 [History Last Taken 09/20/14] estradiol 0.01% (0.1 mg/gram) vaginal cream 42.5 gm VG .TWICE WEEKLY 10/22/19 [History Last Taken Unknown] lutein 20 mg capsule 75 mg PO DAILY 10/22/19 [History Last Taken Unknown] docusate sodium 100 mg capsule 100 mg PO BID PRN PRN Constipation #60 caps 11/02/19 [Rx Last Taken Unknown] Allergy/AdvReac Type Severity Reaction Status Date / Time Iodinated Contrast Media Allergy Itching Verified 02/14/22 16:56 [Iodinated Contrast Media - IV Dye] latex Allergy Itching Verified 02/14/22 16:56 metronidazole [From Flagyl] Allergy Other Verified 02/14/22 16:56 nitrofurantoin Allergy Chest Verified 02/14/22 16:56 [From Macrobid] tightness shellfish derived Allergy Swelling Verified 02/14/22 16:56 Sulfa (Sulfonamide Allergy Rash Verified 02/14/22 16:56 Antibiotics) aspartame AdvReac Other Verified 02/14/22 16:56 Surgical History History of hysterectomy Hx of cholecystectomy Social History Smoking Status: Former smoker ROS ROS ED Constitutional Constitutional ED: Denies chills or fever(s) Eyes Eyes: Denies change in vision or discharge from eye(s) ENT ENT ED: Denies discharge from eye(s), rhinorrhea or sore throat Cardiovascular Cardiovascular: Denies chest pain or palpitations Respiratory/Chest Respiratory/Chest: Denies cough or dyspnea Gastrointestinal Gastrointestinal: Reports abdominal pain; Denies diarrhea, nausea or vomiting Genitourinary Genitourinary ED: Denies difficulty urinating or dysuria Musculoskeletal Musculoskeletal: Denies back pain or extremity pain Integumentary Denies Abrasions or rash Neurologic Neurologic: Denies headache(s) or weakness Psychiatric Psychiatric: Denies anxiety or depression Allergic/Immunologic Allergic/Immunologic ED: Denies lip swelling or urticaria EXAM Physical Exam Const Vital Signs: 02/14/22 16:47 02/14/22 18:16 02/14/22 19:03 Temperature 97.5 F L 97.8 F 98.0 F Temperature Source Temporal Oral Oral Pulse Rate 68 60 62 Respiratory Rate 16 18 18 Blood Pressure 194/94 H 200/79 H 193/72 H Blood Pressure Mean 127 119 112 Pulse Ox 100 96 99 Oxygen Delivery Method Room Air Room Air Room Air 02/14/22 19:04 Temperature 98.0 F Temperature Source Oral Pulse Rate 62 Respiratory Rate 18 Blood Pressure 193/72 H Blood Pressure Mean 112 Pulse Ox 98 Oxygen Delivery Method Room Air Positive well nourished and well developed General Appearance ED: well developed HEENT Reports normocephalic and head/scalp atraumatic Eyes PERRL and EOMs intact bilaterally Neck supple Chest Wall inspection of chest normal and palpation of chest normal Resp normal respiratory effort and clear to auscultation bilaterally Cardio regular rate and regular rhythm GI GI Narrative: Mild tenderness to the left lower quadrant. No guarding or rebound at this time. Active bowel sounds are noted. Palpation: soft Extremity normal to inspection Neuro oriented x3 and no sensory deficits noted Sensorium / Orientation: alert Motor Exam: strength 5/5 throughout Psych mental status grossly normal Skin no rashes or lesions noted MDM MDM MDM Narrative Medical decision making narrative: Lab work and urinalysis obtained. CT scan with contrast ordered. Given the patient's allergy to IV contrast she was premedicated with Solu-Medrol and Benadryl. Due to stomach irritation with steroids in the past he was given a dose of Protonix. Lab Data Attestation: I reviewed the patient's lab results. Labs: Laboratory Results - last 24 hr 02/14/22 02/14/22 02/14/22 17:38 17:38 17:38 WBC 6.6 RBC 4.88 Hgb 13.7 Hct 43.7 MCV 89.5 MCH 28.1 MCHC 31.4 L RDW Std Deviation 44.0 H RDW Coeff of Yulisa 13.5 Plt Count 344 MPV 9.7 Immature Gran % (Auto) 0.300 Neut % (Auto) 65.8 Lymph % (Auto) 21.8 Izard % (Auto) 8.7 Eos % (Auto) 2.9 Baso % (Auto) 0.5 Absolute Neuts (auto) 4.4 Absolute Lymphs (auto) 1.45 Nucleated RBC % 0 Sodium 144 Potassium 3.5 Chloride 109 H Carbon Dioxide 30.0 Anion Gap 5 BUN 8 Creatinine 0.85 Estim Creat Clear Calc 46.62 Est GFR (MDRD) Af Amer 84 Est GFR (MDRD) Non-Af 69 BUN/Creatinine Ratio 9.4 L Glucose 122 H Calcium 9.3 Total Bilirubin 0.80 Direct Bilirubin 0.17 AST 13 L ALT 18 Alkaline Phosphatase 89 Total Protein 7.3 Albumin 4.0 Globulin 3.3 Urine Color Yellow Urine Clarity Sl. Cloudy Urine pH 6.5 Ur Specific [place] 1.010 Urine Protein Negative Urine Glucose (UA) Normal Urine Ketones Negative Urine Occult Blood 10 H Urine Nitrite Negative Urine Bilirubin Negative Urine Urobilinogen Normal Ur Leukocyte Esterase 25 H Urine RBC 0-5 SEEN Urine WBC 0-5 SEEN Ur Squamous Epith Cells 0-5 SEEN Urine Bacteria 0 SEEN Urine Mucus 0 SEEN Radiography Diagnostic Testing: Clinical Impression(s) from Imaging Studies Abdomen/Pelvis CT 02/14/22 17:09 IMPRESSION: Nonspecific partially contrasted appearing bowel gas pattern with diverticulosis without visualized diverticulitis. Mild bilateral pelviectasis without visualized stones along the course of the ureters. Borderline splenomegaly. Advanced degenerative change of the thoracolumbar spine. No appendicitis. Status post cholecystectomy. Status post hysterectomy. Electronically Signed: Roberta Riddle MD at 19:58 EST , Treatment and Re-Evaluation Narrative: CBC is unremarkable with normal white count and no left shift. Hemoglobin is stable at 13.7. Chemistry studies unremarkable. Glucose is 122. LFTs are normal. Urinalysis reveals no sign of acute infection. CT scan reveals diverticulosis without evidence of diverticulitis at this time. No other acute findings are appreciated. Test results are discussed with the patient and at bedside. I did advise that she may have had a mild case of diverticulitis and she is already been on antibiotics for 3 days. [facility] She will follow a bland diet and return instructions have been given. Discharge Plan Triage Chief Complaint: Abd Pain ED Provider: Hattie Stallings Dx/Rx/DC Orders Clinical Impression: Abdominal pain Instructions: ED Abdominal Pain Unkn Cause Fem Prescriptions: No Action liothyronine 5 MCG tablet 5 mcg PO DAILY diclofenac sodium 75 MG tablet 75 mg PO DAILY esomeprazole magnesium [Nexium] 20 MG capsule 20 mg PO DAILY Label Comments: acid reflux multivitamin,[id number]-swpx-dudwqosv [Therems-M] 1 TABLET tablet 1 tab PO DAILY Label Comments: supplement cholecalciferol (vitamin D3) [Vitamin D3] 1,000 UNIT tablet 2,000 unit PO DAILY Label Comments: supplement zeaxanthin (bulk) 100 GM Powder 3 tab PO DAILY L.acidoph, paracasei,B. lactis 1 EACH capsule 1 ea PO DAILY estradiol 42.5 GM cream 42.5 gm VG .TWICE WEEKLY lutein 20 MG capsule 75 mg PO DAILY docusate sodium 100 MG capsule 100 mg PO BID PRN PRN (Reason: Constipation) Qty: 60 1RF Primary Care Provider: Shawn Kohler Referrals: Shawn Kohler MD [Primary Care Provider] - 1 Week if not improving Disposition Disposition: Home, Self Care
[2022-02-14 17:51] LABS: Bacteria 0 SEEN /hpf (None Seen); Mucous, Urine 0 SEEN /hpf (<or=2+)
[2022-02-14 17:55] LABS: Absolute Lymphocyte Count 1.45 X10^3/uL (0.83-4.51); Absolute Neutrophil Count 4.4 X10^3/uL (2.0-7.7); Basophil# 0.03 X10^3/uL; Basophil% 0.5 % (0-1); Eosinophil# 0.19 X10^3/uL; Eosinophils% 2.9 % (0-5); Hematocrit 43.7 % (37-47); Hemoglobin 13.7 g/dL (12.0-15.0); Lymphocyte # 1.45 X10^3/ul (0.83-4.51); Lymphocyte % 21.8 % (19-41); Mean Corp Hgb Conc 31.4 g/dL (32-36); Mean Corpuscular Hgb 28.1 pg (27.0-32.0); Mean Corpuscular Volume 89.5 fL (81-99); Mean Platelet Vol. 9.7 fl (6.2-12.0); Monocyte# 0.58 X10^3/uL; Monocyte% 8.7 % (0-10); NRBC Flagged by Analyzer 0 % (0-5); Neutrophil # 4.37 X10^3/uL (2.7-7.7); Neutrophil % 65.8 % (47-70); Platelet Count 344 K/mm3 (150-450); RBC Distribution Width CV 13.5 % (11.6-14.6); Red Blood Count 4.88 M/mm3 (4.2-5.4); White Blood Count 6.6 K/mm3 (4.4-11.0)
[2022-02-14] MEDS: DiphenhydrAMINE 50 MG/ML Syringe 25 MG IV (17:55)
[2022-02-14] MEDS: 0.9% Normal Saline 1,000 ML 150 ML IV (17:55)
[2022-02-14 18:03] LABS: Color, Urine Yellow (Yellow); Glucose, Dipstick Normal (Normal); Ketone-Dipstick Negative (Negative); Leukocyte Esterase-Dipstick 25 /ul (Negative); Nitrite-Dipstick Negative (Negative); Occult Blood-Urine 10 /ul (Negative); Protein-Dipstick Negative (Negative); Urine Bilirubin Dipstick Negative (Negative); Urine Clarity Sl. Cloudy (Clear); Urine Urobilinogen Normal (Normal); Urine pH 6.5 (5.0 - 8.0)
[2022-02-14 18:10] LABS: AST(SGOT) 13 U/L (15-37); Alanine Aminotransfer ALT/SGPT 18 U/L (13-56); Alkaline Phosphatase 89 U/L (45-117); Anion Gap 5 (5-15); BUN 8 mg/dL (7-18); BUN/Creat Ratio 9.4 RATIO (10-20); Bilirubin, Direct 0.17 mg/dL (0.00-0.30); Calcium,Total 9.3 mg/dL (8.5-10.1); Chloride 109 mmol/L (98-107); Creatinine, Serum 0.85 mg/dL (0.55-1.02); EST Glomerular Filtration Rate 69 mL/min (>60); Est Glom Filt Rate - Afr Amer 84 mL/min (>60); Estimated Creatinine Clearance 46.62 ml/min; Globulin 3.3 g/dL (2.2-4.2); Glucose 122 mg/dL (74-106); Potassium 3.5 mmol/L (3.5-5.1); Protein, Total 7.3 g/dL (6.4-8.2); Sodium Level 144 mmol/L (136-145)
[2022-02-14 18:16] VITALS: BP 200/79; PULSE 60; RESP 18; TEMP 36.6; O2SAT 96
[2022-02-14 18:18] LABS: Red Blood Cells-Urine 0-5 SEEN /hpf (0-5); Squamous Epithelial Cells - UA 0-5 SEEN /hpf (5-10); White Blood Cells 0-5 SEEN /hpf (0-5)
[2022-02-14] MEDS: MethylPREDNISolone 125 MG/2 ML Vial 60 MG IV (18:35)
[2022-02-14 19:03] VITALS: BP 193/72; PULSE 62; RESP 18; TEMP 36.7; O2SAT 99
[2022-02-14 19:04] VITALS: BP 193/72; PULSE 62; RESP 18; TEMP 36.7; O2SAT 98
[2022-02-14] MEDS: Labetalol (Prefilled) 20 MG/4 ML 10 MG IV (19:06)
[2022-02-14 20:16] VITALS: BP 162/69; PULSE 80; RESP 18; O2SAT 95
== END 2022-02-14 20:24 | disposition home or self-care (01) ==
PROVIDERS: Emergency Provider Emergency Medicine; PCP Family Medicine; Visit Provider Emergency Medicine
DX: R10.32 Left lower quadrant pain (principal); Z87.891 Personal history of nicotine dependence
CPT/HCPCS: 74177; 80048; 80076; 81001; 85025; 87428; 96365; 96375; 99283; J7030; Q9967; A4216

== ENCOUNTER → 2022-04-06 | Outpatient (CLI) | payer MEDICARE, OTHER, SELFPAY ==
--- NOTE | 2022-04-06 12:07 | BI_ITS ---
MAMMOGRAPHY - BILATERAL SCREENING REASON FOR EXAM: Female, 71 years old. Routine annual screening examination. PERTINENT HISTORY: Non-contributory. Remote left excisional breast biopsy. TECHNIQUE: Digital bilateral breast raquel (3D mammographic acquisition) in the CC and MLO projections. 2-D mediolateral oblique (MLO) and craniocaudad (CC) views of both breasts were obtained. CAD: Full Field Digital Mammography with Computer Added Detection was performed. COMPARISON: Comparison is made with prior study dated 10/01/2021 and 02/19/2020. FINDINGS: Breast Composition: The breasts are heterogeneously dense, which may obscure small masses. There are no dominant masses or suspicious calcifications. Stable small benign-appearing bilateral axillary lymph nodes. No other significant abnormalities are identified. There has been no significant change since the prior study. BI/SCRN MAMM (CAD)W/RAQUEL BILAT IMPRESSION: Stable bilateral screening mammogram. Yearly follow-up mammogram recommended. (A) ASSESSMENT CATEGORY: BIRADS Category 2: Benign. A letter regarding these results will be sent to the patient by the facility within 30 days. Approximately 10% of breast cancers are not detected by mammography. A normal mammogram should not delay biopsy of a clinically suspicious abnormality. [id number] Electronically Signed: Nicholas España MD at 13:11 EST ,
== END | disposition home or self-care (01) ==
LOC: OPBI 12:06
PROVIDERS: PCP Family Medicine; Referring Provider Family Medicine; Visit Provider Family Medicine
DX: Z12.31 Encounter for screening mammogram for malignant neoplasm of breast (principal)
CPT/HCPCS: 77063; 77067

== ENCOUNTER → 2022-04-09 | Outpatient (CLI) | payer MEDICARE, OTHER, SELFPAY ==
[2022-04-09 12:12] LABS: Absolute Lymphocyte Count 1.97 X10^3/uL (0.83-4.51); Absolute Neutrophil Count 3.9 X10^3/uL (2.0-7.7); Basophil# 0.03 X10^3/uL; Basophil% 0.5 % (0-1); Eosinophil# 0.18 X10^3/uL; Eosinophils% 2.7 % (0-5); Hematocrit 42.5 % (37-47); Hemoglobin 13.6 g/dL (12.0-15.0); Lymphocyte # 1.97 X10^3/ul (0.83-4.51); Lymphocyte % 29.6 % (19-41); Mean Corpuscular Hgb 28.9 pg (27.0-32.0); Mean Corpuscular Volume 90.4 fL (81-99); Mean Platelet Vol. 10.7 fl (6.2-12.0); NRBC Flagged by Analyzer 0 % (0-5); Neutrophil # 3.86 X10^3/uL (2.7-7.7); Platelet Count 367 K/mm3 (150-450); RBC Distribution Width CV 14.2 % (11.6-14.6); RBC Distribution Width SD 47.4 fl (35.1-43.9); White Blood Count 6.7 K/mm3 (4.4-11.0)
[2022-04-09 12:17] LABS: Microalbumin,Random Urine 5.8 mg/L (NO RANGE EST.); Microalbumin:Creatinine Ratio 30.1 mg/g CRE (<30 mg/g CRE)
[2022-04-09 12:37] LABS: PTHIN 39.3 pg/mL (18.4-80.1)
[2022-04-09 12:40] LABS: Vitamin D,25 Hydroxy 26.4 ng/mL
[2022-04-09 12:58] LABS: ALB/GLOB Ratio 1.3 RATIO (0.9-2.4); AST(SGOT) 15 U/L (15-37); Alanine Aminotransfer ALT/SGPT 14 U/L (13-56); Albumin, Serum 3.7 g/dL (3.2-5.0); Alkaline Phosphatase 82 U/L (45-117); Anion Gap 6 (5-15); BUN 14 mg/dL (7-18); BUN/Creat Ratio 17.5 RATIO (10-20); Calcium,Total 9.2 mg/dL (8.5-10.1); Chloride 108 mmol/L (98-107); Cholesterol 179 mg/dL (200); EST Glomerular Filtration Rate 75 mL/min (>60); Est Glom Filt Rate - Afr Amer 91 mL/min (>60); Globulin 2.9 g/dL (2.2-4.2); Glucose 98 mg/dL (74-106); High Density Lipoprotein 58 mg/dL; Potassium 3.9 mmol/L (3.5-5.1); Protein, Total 6.6 g/dL (6.4-8.2); Sodium Level 142 mmol/L (136-145); T4 Free Direct 0.86 ng/dL (0.76-1.46); Triglycerides 108 mg/dL; Very Low Density Lipoprotein 22 mg/dL (5-40)
[2022-04-09 13:07] LABS: Hemoglobin A1c 5.5 % (3.8-5.6)
== END | disposition home or self-care (01) ==
LOC: MFPLAB 09:50
PROVIDERS: PCP Family Medicine; Referring Provider Family Medicine; Visit Provider Family Medicine
DX: M85.80 Other specified disorders of bone density and structure, unspecified site (principal); I10 Essential (primary) hypertension; R81 Glycosuria; E03.9 Hypothyroidism, unspecified
CPT/HCPCS: 36415; 80053; 80061; 82043; 82306; 82570; 83036; 83970; 84439; 84443; 85025

== ENCOUNTER → 2022-08-23 | Outpatient (CLI) | payer MEDICARE, OTHER, SELFPAY ==
[2022-08-23 17:46] LABS: Absolute Lymphocyte Count 2.12 X10^3/uL (0.83-4.51); Absolute Neutrophil Count 3.7 X10^3/uL (2.0-7.7); Basophil# 0.04 X10^3/uL; Basophil% 0.6 % (0-1); Eosinophil# 0.19 X10^3/uL; Eosinophils% 2.8 % (0-5); Hematocrit 41.6 % (37-47); Lymphocyte # 2.12 X10^3/ul (0.83-4.51); Lymphocyte % 31.6 % (19-41); Mean Corp Hgb Conc 31.3 g/dL (32-36); Mean Corpuscular Hgb 28.7 pg (27.0-32.0); Mean Corpuscular Volume 91.8 fL (81-99); Mean Platelet Vol. 10.8 fl (6.2-12.0); Monocyte# 0.63 X10^3/uL; Monocyte% 9.4 % (0-10); NRBC Flagged by Analyzer 0 % (0-5); Neutrophil % 55.3 % (47-70); Platelet Count 340 K/mm3 (150-450); RBC Distribution Width CV 13.4 % (11.6-14.6); RBC Distribution Width SD 45.2 fl (35.1-43.9); Red Blood Count 4.53 M/mm3 (4.2-5.4); White Blood Count 6.7 K/mm3 (4.4-11.0)
[2022-08-23 18:16] LABS: ALB/GLOB Ratio 1.2 RATIO (0.9-2.4); AST(SGOT) 11 U/L (15-37); Alanine Aminotransfer ALT/SGPT 16 U/L (13-56); Albumin, Serum 3.6 g/dL (3.2-5.0); Alkaline Phosphatase 86 U/L (45-117); Anion Gap 4 (5-15); BUN 15 mg/dL (7-18); BUN/Creat Ratio 17.7 RATIO (10-20); Calcium,Total 8.6 mg/dL (8.5-10.1); Chloride 107 mmol/L (98-107); Creatinine, Serum 0.85 mg/dL (0.55-1.02); EST Glomerular Filtration Rate 70 mL/min (>60); Est Glom Filt Rate - Afr Amer 84 mL/min (>60); Globulin 2.9 g/dL (2.2-4.2); Glucose 122 mg/dL (74-106); Magnesium 2.4 mg/dL (1.6-2.6); Potassium 3.8 mmol/L (3.5-5.1); Protein, Total 6.5 g/dL (6.4-8.2); Sodium Level 139 mmol/L (136-145); T4 Free Direct 0.76 ng/dL (0.76-1.46); Thyroid Stim Hormone (TSH) 1.43 uIU/mL (0.358-3.74)
== END | disposition home or self-care (01) ==
LOC: MFPLAB 16:18
PROVIDERS: PCP Family Medicine; Visit Provider Family Medicine
DX: R53.83 Other fatigue (principal); E87.6 Hypokalemia
CPT/HCPCS: 36415; 80053; 83735; 84439; 84443; 85025

== ENCOUNTER → 2022-10-22 | Outpatient (CLI) | payer MEDICARE, OTHER, SELFPAY ==
[2022-10-22 15:25] LABS: Erythrocyte Sedimentation Rate 1 mm/hr (0-30)
[2022-10-22 15:47] LABS: Thyroid Stim Hormone (TSH) 1.38 uIU/mL (0.358-3.74)
== END | disposition home or self-care (01) ==
LOC: MFPLAB 12:06
PROVIDERS: Nurse Practitioner Family; PCP Family Medicine; Visit Provider Family Medicine
DX: E03.9 Hypothyroidism, unspecified (principal); M25.50 Pain in unspecified joint
CPT/HCPCS: 36415; 84443; 85652

== ENCOUNTER → 2023-01-11 | Outpatient (CLI) | payer MEDICARE, OTHER, SELFPAY ==
[2023-01-11 12:49] LABS: Erythrocyte Sedimentation Rate 2 mm/hr (0-30)
[2023-01-11 12:56] LABS: Absolute Lymphocyte Count 1.73 X10^3/uL (0.83-4.51); Absolute Neutrophil Count 3.6 X10^3/uL (2.0-7.7); Basophil# 0.04 X10^3/uL; Basophil% 0.6 % (0-1); Eosinophil# 0.21 X10^3/uL; Eosinophils% 3.4 % (0-5); Hematocrit 41.8 % (37-47); Lymphocyte # 1.73 X10^3/ul (0.83-4.51); Mean Corp Hgb Conc 31.1 g/dL (32-36); Mean Corpuscular Hgb 28.4 pg (27.0-32.0); Mean Corpuscular Volume 91.5 fL (81-99); Mean Platelet Vol. 10.7 fl (6.2-12.0); Monocyte# 0.53 X10^3/uL; Monocyte% 8.6 % (0-10); NRBC Flagged by Analyzer 0 % (0-5); Neutrophil # 3.63 X10^3/uL (2.7-7.7); Neutrophil % 58.9 % (47-70); Platelet Count 374 K/mm3 (150-450); RBC Distribution Width CV 14.1 % (11.6-14.6); RBC Distribution Width SD 47.9 fl (35.1-43.9); Red Blood Count 4.57 M/mm3 (4.2-5.4); White Blood Count 6.2 K/mm3 (4.4-11.0)
[2023-01-11 12:58] LABS: PTHIN 25.2 pg/mL (18.4-80.1)
[2023-01-11 13:05] LABS: T3 Total - Triiodothyronine 1.43 ng/mL (0.6-1.81); Vitamin D,25 Hydroxy 39.1 ng/mL
[2023-01-11 13:17] LABS: CRP < 2.90 mg/L (0.0-3.0); Ferritin 80 ng/mL (8-252); Magnesium 2.4 mg/dL (1.6-2.6); Rheumatoid Factor < 10.0 IU/mL (<15); T4 Free Direct 0.87 ng/dL (0.76-1.46); Thyroid Stim Hormone (TSH) 1.39 uIU/mL (0.358-3.74)
[2023-01-11 13:24] LABS: Creatinine, Urine (random) < 13.00 mg/dL (NO RANGE EST.); Microalbumin,Random Urine < 5.0 mg/L (NO RANGE EST.)
[2023-01-14 13:07] LABS: ANTINUCLEAR ANTIBODIES DIRECT Negative (Negative)
[2023-01-14 18:07] LABS: Anti-Thyroglobulin AB < 1.0 IU/mL (0.0-0.9); Lyme Scn Total Ab w/Rflx Negative (Negative); PROEL- A/G Ratio 1.4 (0.7-1.7); PROEL- Albumin 3.5 g/dL (2.9-4.4); PROEL- Alpha-1 Globulin 0.2 g/dL (0.0-0.4); PROEL- Alpha-2 Globulin 0.7 g/dL (0.4-1.0); PROEL- Gamma Globulin 0.7 g/dL (0.4-1.8); PROEL- Globulin, Total 2.5 g/dL (2.2-3.9); PROEL-M-Spike Not Observed g/dL (Not Observed); Thyroglobulin, Serum Qt. 5.5 ng/mL (1.5-38.5)
== END | disposition home or self-care (01) ==
LOC: MFPLAB 10:09
PROVIDERS: PCP Family Medicine; Visit Provider Family Medicine
DX: M25.50 Pain in unspecified joint (principal); M79.10 Myalgia, unspecified site; M85.80 Other specified disorders of bone density and structure, unspecified site; R80.9 Proteinuria, unspecified; Z86.39 Personal history of other endocrine, nutritional and metabolic disease
CPT/HCPCS: 82043; 82306; 82570; 82728; 83735; 83970; 84165; 84432; 84439; 84443; 84480; 85025; 85652; 86038; 86140; 86431; 86618; 86800

== ENCOUNTER → 2023-02-06 | Outpatient (CLI) | payer MEDICARE, OTHER, SELFPAY ==
--- NOTE | 2023-02-06 10:57 | MRI_ITS ---
STUDY: MRI LUMBAR SPINE WITHOUT CONTRAST REASON FOR EXAM: Female, 72 years old. lumbar stenosis, LOWER BACK PAIN WITH LEG RADICULOPATHY TECHNIQUE: Standardized fat and water weighted pulse sequences were obtained in the sagittal and axial planes. COMPARISON: None FINDINGS: T12-L1: Normal endplates. Grade 1 retrolisthesis narrowed disc space with desiccation of the disc and mild bulging disc osteophyte complex. Normal bilateral facet joints. Mild narrowing of central canal. Normal bilateral lateral recesses. Mild bilateral neural foraminal encroachment. Normal lumbar lordosis. There is no substantial scoliosis. Normal conus medullaris that terminates at the L1-2: Normal endplates. Normal disc height, desiccation and minimal annular bulge. Normal bilateral facet joints. Normal central canal and bilateral lateral recesses. Normal bilateral intervertebral neural foramina. L2-3: Normal endplates. Normal disc height, desiccation and minimal annular bulge. Normal bilateral facet joints. Normal central canal and bilateral lateral recesses. Normal bilateral intervertebral neural foramina. L3-4: Normal endplates. Normal disc height, desiccation mild to moderate annular bulge.. Facet arthropathy and thickening of ligamenta flava. Normal central canal. Moderate bilateral lateral recess and severe neural foraminal stenosis exaggerated by shortened pedicles L4-5: Grade 1 spondylolisthesis Normal endplates. Narrowed disc space desiccation of disc and mild bulging disc osteophyte complex. Facet arthropathy and thickening of ligamenta flava. Normal central canal. Moderate bilateral lateral recess and neural foraminal stenosis L5-S1: Grade 1 spondylolisthesis Normal endplates. Normal disc height, desiccation and minor bulging disc osteophyte complex. Facet arthropathy and thickening of ligamenta flava.. Normal central canal and bilateral lateral recesses. Normal bilateral intervertebral neural foramina. Normal visualized sacral ala. Normal visualized paraspinous soft tissue structures. MRI/Spine Lumbar (Routine) IMPRESSION: No evidence for acute fracture or other significant bony pathology.. Moderate spondylosis and multilevel spinal stenosis secondary to disc disease and bony hypertrophy most severe at L3-4 Findings as above Electronically Signed: Cj Spear MD at 21:32 EST Reading Location ID and State: [address] [place] [address] Tel , Service support ,
== END | disposition home or self-care (01) ==
PROVIDERS: PCP Family Medicine; Referring Provider Family Medicine; Visit Provider Family Medicine
DX: M48.061 Spinal stenosis, lumbar region without neurogenic claudication (principal)
CPT/HCPCS: 72148

== ENCOUNTER 2023-03-11 12:51 | Outpatient (RCR) | payer MEDICARE, OTHER, SELFPAY ==
--- NOTE | 2023-03-11 14:26 | HP.PTEVAL_ITS ---
Patient's Visit Information Visit Information Visit Information: RUBEN NEWELL is a 72 year old F referred to Physical Therapy by Dr. Avi Clifton MD with a diagnosis of RADICULOPATHY ,LUMBAR. Date of Evaluation: 03/11/23 Physical Therapist: Wilman Noel, PT, Cert MDT, OCS Visit Plan Frequency: 2x /Week Duration: 4 Weeks Plan: LATEX ALLERGY PATIENT HAS ISLOATED KNEE PAIN PT INTERVTIONS POSTURAL EX'S,DLS ,LE FLEXABLITY /STRENGTHNEING AND LUMBAR FLEXION Subjective Subjective: This 72 y/o female presents to physical therapy with lumbar radi culopathy. Patient has had back pain and radicular symptoms in September. Pain in back and leg progressively worse and had MRI lumbar showed severe stenosis and DDD. Patient also has right knee pain with possible OA ~ 4 years ago which consisted of pool. Dr Clifton did recommend orthopedic knee DR . Patient pain located isolated and lateral calf and right. Aggravating factors walking/standing ,difficulty lifting ,sitting in certain chairs. Alleviating factors rest. Coughing/sneezing-. Bowel/bladder -. Denies paresthesia/tingling - . Patient sleeping good. Denies pain in back and isolated knee pain. Patient pain causes deficits with ADLS and function. Patient goals to decrease pain. SOCAIL: VOCATION: Pain Left Knee: Pain Intensity (Out of 10): 7 Pain Intensity Range: 10 Comment: activity Objective Objective: POSTURE: mild forward posture GAIT: ambulates with antalgic gait mild forward posture antalgic gait right side NEURO: denies paresthesia/tingling ,reflexes L3-4,L4-5,L5-S1 1/3 SYMMTRIES: align PALPATION: tender LS/SI MMT: quads/hams 4/5 ,pain right knee ,hip flexion 4-/5,hip abd 3+/5 ,ankle 4/5 LUMBAR ROM: flexion min loss ,extension mod/severe loss ,side glides mod loss FLEXABILITY: hamstrings WFL AROM: right supine knee flexion 5-105 degrres painful Special Tests L/S Slump test left side: Negative L/S Slump test right side: Negative L/S Left Straight Leg Raise: Negative L/S Right Straight Leg Raise: Negative Balance/Special Test Scores Oswestry Low Back Score: 26 Goals Goal 1:: Patient to be I with HEP for lumbar Goal Time Frame: 4-6 Weeks Goal 2:: Patient to improve lumbar ROM for function of recovery for ADLS and put on shoes Goal Time Frame: 4-6 Weeks Goal 3:: Patient to improve back oswestry score by 5 points to improve QOL and function Goal Time Frame: 4-6 Weeks Goal 4:: Patient to demonstrate 40-50% improvement with less pain and improved function. Goal Time Frame: 4-6 Weeks Goal 5:: Patient to improve gait with less antalgic gait Goal Time Frame: 4-6 Weeks Rehabilitation Potential Physical Therapy Diagnosis: This patient has lumbar pain with stenosis with foraminal with pain with position and motion testing ,walking/standing affects ADL's thus benefit from skilled PTB Rehabilitation Potential: Good Anticipated Interventions Patient/Client Instruction: Educate patient on: Condition and Plan of Care For the Purpose of:: To decrease pain, To increase ROM, To improve muscle performance and motor function, To increase tolerance to activity/condition/position, To improve performance and independence with ADL's, To improve ability of physical actions for home/community/work/leisure, To improve health of tissue, To decrease soft tissue restriction, To increase flexibility/ROM, To reduce risk of recurrence and To improve tolerance to ADL's Therapeutic Exercise to Include: Strength training, Endurance training, Body mechanics, Postural training, Flexibilty training and Dynamic Lumbar Stabilization For the Purpose of:: To decrease pain, To improve muscle performance and motor function, To improve ability to perform ADL's, To increase tolerance to activity/condition/position, To improve ability of physical actions for home/community/work/leisure, To improve health of tissue, To decrease soft tissue restriction, To increase flexibility/ROM and To improve tolerance to ADL's Text: Thank you for the opportunity to evaluate your patient. For Medicare and Medicare HMO plans, please review the plan of care and approve it. It will need to be FAXED BACK to us at [phone] for Medicare purposes. For Medicare only, by signing this I certify the plan of care. Please let me know if there are questions or concerns regarding this plan of care. Physician Signature: Date:
--- NOTE | 2023-06-17 16:12 | HP.PTDCNRP_ITS ---
Patient Information Patient Information: RUBEN NEWELL was seen in my office for initial evaluation on 03/11/23. The following Plan of Care was established for this patient: POC Established Initial Frequency: 2x /Week Initial Duration: 4 Weeks Anticipated Interventions Patient/Client Instruction: Educate patient on: Condition and Plan of Care For the Purpose of:: To decrease pain, To increase ROM, To improve muscle performance and motor function, To increase tolerance to activity/condition/position, To improve performance and independence with ADL's, To improve ability of physical actions for home/community/work/leisure, To improve health of tissue, To decrease soft tissue restriction, To increase flexibility/ROM, To reduce risk of recurrence and To improve tolerance to ADL's Therapeutic Exercise to Include: Strength training, Endurance training, Body mechanics, Postural training, Flexibilty training and Dynamic Lumbar Stabilization For the Purpose of:: To decrease pain, To improve muscle performance and motor function, To improve ability to perform ADL's, To increase tolerance to activity/condition/position, To improve ability of physical actions for home/community/work/leisure, To improve health of tissue, To decrease soft tissue restriction, To increase flexibility/ROM and To improve tolerance to ADL 's Last Seen Last Seen: This patient was last seen in our office . Pertinent comments regarding their Physical therapy will appear below: Patient was seen for PT for lumbar radiculopathy For HEP At this point I will be discontinuing this patient from physical therapy. I would be happy to see this patient again in the future if found appropriate by the physician. Thank you! Wilman Noel, PT, Cert MDT, OCS Balance/Gait/Functional tests Balance/Special Test Scores Oswestry Low Back Score: 26
== END 2023-03-11 19:00 | disposition home or self-care (01) ==
LOC: PT 12:51
PROVIDERS: PCP Family Medicine; Visit Provider Orthopaedic Surgery Orthopaedic Surgery of the Spine
DX: M54.16 Radiculopathy, lumbar region (principal)
CPT/HCPCS: 97110; 97162

== ENCOUNTER → 2023-03-12 | Outpatient (CLI) | payer MEDICARE, OTHER, SELFPAY ==
--- NOTE | 2023-03-12 16:05 | RAD_ITS ---
STUDY: X-RAY - RIGHT KNEE REASON FOR EXAM: Female, 72 years old. pain behind R knee, popliteal space with fullness, likely OA -- otto cyst TECHNIQUE: 5 view(s) of the knee. COMPARISON: None. FINDINGS: Normal visualized distal femur. Normal visualized proximal tibia and fibula. Normal proximal tibiofibular articulation. Exostosis posterior tibia measures 18 x 34 mm. There is moderate degenerative arthrosis of the medial femorotibial compartment with moderate joint space narrowing. Normal lateral femorotibial compartment. Normal patellofemoral articulation. The soft tissue structures are unremarkable. 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
== END | disposition home or self-care (01) ==
LOC: MTRAD 16:05
PROVIDERS: PCP Family Medicine; Referring Provider Family Medicine; Visit Provider Family Medicine
DX: M71.20 Synovial cyst of popliteal space [Baker], unspecified knee (principal)
CPT/HCPCS: 73564

== ENCOUNTER → 2023-04-15 | Outpatient (CLI) | payer MEDICARE, OTHER, SELFPAY ==
--- NOTE | 2023-04-15 12:35 | MRI_ITS ---
STUDY: MRI RIGHT KNEE REASON FOR EXAM: Female, 72 years old. Pain. Possible bone lesion on xray. TECHNIQUE: Limited sagittal proton density, axial T1, and axial T2 fat-sat pulse sequences were obtained of the right knee. COMPARISON: Right knee radiographs dated 03/12/2023. FINDINGS: There is a benign osteochondroma arising from the posteromedial aspect of the proximal tibial metaphysis, measuring 2.9 cm at its base and 2.1 cm in height. There is no thickened overlying cartilage cap. There is a suspected small partial radial tear of the posterior horn of the medial meniscus (sagittal PD series 5 image 27). There is degenerative arthrosis of the medial femorotibial compartment with joint space narrowing, marginal osteophyte formation, and chondral thinning. Normal distal semimembranosus, gracilis and semitendinosus tendons. Normal lateral meniscus. Normal hyaline cartilage of the lateral femorotibial compartment. Normal lateral femoral condyle and tibial plateau. Normal proximal tibiofibular articulation. Normal popliteus tendon. Normal biceps femoris tendon. There is an interstitial sprain of the ACL (sagittal PD series 5 image 22). Normal posterior cruciate ligament (PCL). Normal congruent patellofemoral articulation. Normal hyaline cartilage of the patellofemoral compartment. Normal medial and lateral patellar retinaculum. Normal quadriceps tendon. Normal patellar tendon. Normal Hoffa''s fat pad. There is a small joint effusion. There is a small popliteal cyst. There is mild subcutaneous soft tissue edema along the anterior aspect of the knee. MRI/Lower Ext Joint Only (Routine) IMPRESSION: Benign osteochondroma arising from the posteromedial aspect of the proximal tibial metaphysis. Suspected small partial radial tear of the posterior horn of the medial meniscus. Degenerative arthrosis of the medial femorotibial compartment. Interstitial sprain of the ACL. Small joint effusion with a small popliteal cyst. Electronically Signed: Ramana Galdamez MD at 14:19 EST ,
[2023-04-15 13:23] LABS: CREATININE FINGERSTICK < 1.0 mg/dL (0.55-1.02); EGFR FINGERSTICK > 60.0000 mL/min (>60)
== END | disposition home or self-care (01) ==
LOC: MRI 12:28
PROVIDERS: PCP Family Medicine; Referring Provider Orthopaedic Surgery; Visit Provider Orthopaedic Surgery
DX: M25.561 Pain in right knee (principal)
CPT/HCPCS: 73721

== ENCOUNTER → 2023-05-01 | Outpatient (CLI) | payer MEDICARE, OTHER, SELFPAY ==
--- NOTE | 2023-05-01 12:25 | BI_ITS ---
MAMMOGRAPHY - BILATERAL SCREENING REASON FOR EXAM: Female, 72 years old. Routine annual screening examination. PERTINENT HISTORY: Non-contributory. Remote left excisional breast biopsy. TECHNIQUE: Digital bilateral breast raquel (3D mammographic acquisition) in the CC and MLO projections. 2-D mediolateral oblique (MLO) and craniocaudad (CC) views of both breasts were obtained. CAD: Full Field Digital Mammography with Computer Added Detection was performed. COMPARISON: Comparison is made with prior study of April 06, 2022 and April 03, 2021. FINDINGS: Breast Composition: The breasts are heterogeneously dense, which may obscure small masses. There are no dominant masses or suspicious calcifications. Stable benign-appearing bilateral axillary lymph nodes. No other significant abnormalities are identified. There has been no significant change since the prior study. BI/SCRN MAMM (CAD)W/RAQUEL BILAT IMPRESSION: Stable bilateral screening mammogram. Yearly follow-up mammogram recommended. (A) ASSESSMENT CATEGORY: BIRADS Category 2: Benign. A letter regarding these results will be sent to the patient by the facility within 30 days. Approximately 10% of breast cancers are not detected by mammography. A normal mammogram should not delay biopsy of a clinically suspicious abnormality. [id number] Electronically Signed: Nicholas España MD at 13:26 EST ,
== END | disposition home or self-care (01) ==
LOC: OPBI 12:25
PROVIDERS: PCP Family Medicine; Referring Provider Family Medicine; Visit Provider Family Medicine
DX: Z12.31 Encounter for screening mammogram for malignant neoplasm of breast (principal)
CPT/HCPCS: 77063; 77067

== ENCOUNTER → 2023-12-25 | Outpatient (CLI) | payer MEDICARE, OTHER, SELFPAY ==
[2023-12-25 18:34] LABS: Hemoglobin A1c 5.3 % (3.8-5.6)
[2023-12-25 18:41] LABS: ALB/GLOB Ratio 1.3 RATIO (0.9-2.4); AST(SGOT) 15 U/L (15-37); Alanine Aminotransfer ALT/SGPT 14 U/L (13-56); Albumin, Serum 3.7 g/dL (3.2-5.0); Alkaline Phosphatase 94 U/L (45-117); Anion Gap 5 (5-15); BUN 13 mg/dL (7-18); BUN/Creat Ratio 15.4 RATIO (10-20); Calcium,Total 9.2 mg/dL (8.5-10.1); Chloride 105 mmol/L (98-107); Creatinine, Serum 0.85 mg/dL (0.55-1.02); EST Glomerular Filtration Rate 70 mL/min (>60); Est Glom Filt Rate - Afr Amer 84 mL/min (>60); Globulin 2.8 g/dL (2.2-4.2); Glucose 95 mg/dL (74-106); Potassium 4.1 mmol/L (3.5-5.1); Protein, Total 6.5 g/dL (6.4-8.2); Sodium Level 138 mmol/L (136-145); T4 Free Direct 0.86 ng/dL (0.76-1.46)
[2023-12-25 18:46] LABS: Microalbumin,Random Urine < 5.0 mg/L (NO RANGE EST.)
[2023-12-26 01:57] LABS: Vitamin D,25 Hydroxy 35.4 ng/mL
== END | disposition home or self-care (01) ==
LOC: MFPLAB 15:03
PROVIDERS: PCP Family Medicine; Visit Provider Family Medicine
DX: E03.9 Hypothyroidism, unspecified (principal); M85.859 Other specified disorders of bone density and structure, unspecified thigh; I10 Essential (primary) hypertension; E66.811 Obesity, class 1
CPT/HCPCS: 36415; 80053; 82043; 82306; 82570; 83036; 84439; 84443

== ENCOUNTER → 2024-02-11 | Outpatient (CLI) | payer MEDICARE, OTHER, SELFPAY ==
--- NOTE | 2024-02-11 14:04 | BD_ITS ---
STUDY: DUAL ENERGY X-RAY ABSORPTIOMETRY / DXA REASON FOR EXAM: Female, 73 years old. 733.90OsteopeniaBONE DENSITY REASON FOR EXAM TECHNIQUE: Bone Mineral Density (BMD) measurements of lumbar spine and bilateral hips were obtained. COMPARISON: Comparison is made with prior study dated November 08, 2020. FINDINGS: Lumbar Spine (L1-L4): g/cm2 (1.123) / T-score (0.7) / Z-score (3.1) Findings are suggestive of normal bone density with a low fracture risk. Left Femur Total: g/cm2 (0.814) / T-score (-1.1) / Z-score (0.8) Left Femoral Neck: g/cm2 (0.711) / T-score (-1.2) / Z-score (0.9) Right Femur Total: g/cm2 (0.820) / T-score (-1.0) / Z-score (0.8) Right Femoral Neck: g/cm2 (0.673) / T-score (-1.6) / Z-score (0.5) The T-Scores on the most recent prior examination were: Lumbar Spine (L1-L4): There has been improvement of bone density since the previous examination. Left Femur Total: which represents a worsening of 1.5%. Right Femur Total: which represents a worsening of 1.6%. BD/Dexa Bone Density Study IMPRESSION: The patient is considered osteopenic as outlined below according to World [place] Organization (WHO) criteria with a moderate fracture risk. There has been worsening of bone density since the previous examination. Reference Information: The T-score is the number of standard deviations above or below the standard which is normal for young adults at their peak bone mineral density. The World Health Organization (WHO) interprets the T-scores as follows: Above -1 Normal bone density Between -1 and -2.5 Osteopenia Equal to / or below -2.5 Osteoporosis As a practical clinical guideline, osteopenia may be graded as follows: Mild -1 through -1.5 Moderate -1.6 through -2.0 Severe -2.1 through -2.4 The Z-score is the number of standard deviations above or below age-matched controls. A Z-score of less than -1.5 would be considered abnormal. References: 1. NIH Osteoporosis and Related Bone Diseases www osteo.org 2. International Society for Clinical Densitometry www iscd.org 3. National Osteoporosis Foundation www nof.org Electronically Signed: Nicholas España MD at 14:55 EST ,
== END | disposition home or self-care (01) ==
LOC: OPBD 13:57
PROVIDERS: PCP Family Medicine; Referring Provider Family Medicine; Visit Provider Family Medicine
DX: M85.89 Other specified disorders of bone density and structure, multiple sites (principal)
CPT/HCPCS: 77080

== ENCOUNTER → 2024-05-04 | Outpatient (CLI) | payer MEDICARE, OTHER, SELFPAY ==
--- NOTE | 2024-05-04 13:45 | BI_ITS ---
PROCEDURE: SCRN MAMM (CAD)W/RAQUEL BILAT REASON FOR EXAM: F, Age 73 y/o, no family history. Prior left excisional breast biopsy. TECHNIQUE: Bilateral screening digital breast tomosynthesis with 2D and 3D images. Computer aided detection. COMPARISON: Prior exam(s) dating back to May 01, 2023.. FINDINGS: The breasts are heterogeneously dense which may obscure small masses. Stable bilateral fat containing axillary lymph nodes. No suspicious masses, areas of developing architectural distortion, or suspicious calcifications. BI/SCRN MAMM (CAD)W/RAQUEL BILAT IMPRESSION: BI-RADS 2: BENIGN. RECOMMEND ANNUAL MAMMOGRAPHIC SCREENING. Follow-up code: Routine Follow-up The patient will be notified of the results by letter. Reading Location: [id number]
== END | disposition home or self-care (01) ==
LOC: OPBI 13:44
PROVIDERS: PCP Family Medicine; Referring Provider Family Medicine; Visit Provider Family Medicine
DX: Z12.31 Encounter for screening mammogram for malignant neoplasm of breast (principal)
CPT/HCPCS: 77063; 77067

== ENCOUNTER 2025-02-10 16:56 | Emergency (ER) | payer MEDICARE, OTHER, SELFPAY ==
[2025-02-10 16:57] VITALS: BP 190/84; PULSE 71; RESP 16; TEMP 36.1; O2SAT 99
--- NOTE | 2025-02-10 18:58 | ED.VIS.LOWEX ---
HPI History of Present Illness HPI Narrative: Patient presents with pain in her left leg that began today. Patient states it began rather suddenly today. Patient states it has been constant. Patient describes it as stabbing. Patient states it is worse when she is walking. Patient states it is better at rest. Patient denies any trauma or injury. Patient states she has not been with home that she takes for arthritis. Patient states she took 1 of these tablets today which did not help. Patient denies any swelling. Chief Complaint: Lower Extremity Injury Informant: patient Onset/Context/Timing Onset: Today Context: Sudden Onset Timing: Continuous Quality of Pain: Stabbing Location: Left lower leg and popliteal area Worsened by: Walking Relieved by: Rest Associated Symptoms Associated Symptoms: Negative for Parasthesia, Weakness or Loss of Funtion [facility] Medical History (Updated 02/10/25 @ 20:[address] Shawn Edmond, DO) Hypertension Jennifer's thyroiditis Gallstones Home Medications ?Medication ?Instructions ?Recorded ?Last Taken ?Type cholecalciferol (vitamin D3) 25 2,000 unit PO DAILY 09/21/14 09/20/14 History mcg (1,000 unit) tablet (Vitamin D3) esomeprazole magnesium 20 mg 20 mg PO DAILY 09/21/14 11/02/19 History capsule,delayed release (Nexium) liothyronine 5 mcg tablet 5 mcg PO DAILY 09/21/14 11/02/19 History multivitamin,xi-sgoc-zzbumacm 27 1 tab PO DAILY 09/21/14 09/20/14 History mg-0.4 mg tablet (Therems-M) estradiol 0.01% (0.1 mg/gram) 42.5 g VG .TWICE WEEKLY 10/22/19 Unknown History vaginal cream docusate sodium 100 mg capsule 100 mg PO BID PRN PRN Constipation 02/19/23 Unknown History lutein 20 mg capsule 20 mg PO DAILY 02/19/23 Unknown History nabumetone 750 mg tablet 750 mg PO BID 02/19/23 Unknown History nebivolol 5 mg tablet 5 mg PO DAILY 02/19/23 Unknown History zeaxanthin (bulk) 90 % powder 2 ea PO DAILY 02/19/23 Unknown History acetazolamide 500 mg mg PO 04/01/23 Unknown History capsule,extended release hydrocodone-acetaminophen 5-325mg 1 tab PO Q6H PRN PRN Pain 3 days 02/10/25 Unknown Rx 5mg-325mg #10 TABLETS Allergy/AdvReac Type Severity Reaction Status Date / Time Iodinated Contrast Media Allergy Itching Verified 02/10/25 16:57 (Iodinated Contrast Media - IV Dye) latex Allergy Itching Verified 02/10/25 16:57 metronidazole (From Flagyl) Allergy Other Verified 04/17/23 11:03 nitrofurantoin (From Allergy Chest Verified 02/10/25 16:57 Macrobid) tightness shellfish derived Allergy Swelling Verified 02/10/25 16:57 Sulfa (Sulfonamide Allergy Rash Verified 02/10/25 16:57 Antibiotics) aspartame AdvReac Other Verified 02/10/25 16:57 Surgical History (Updated 02/10/25 @ 19:[address] Shawn Edmond DO) History of thyroid surgery Hx of tonsillectomy History of lumpectomy of left breast History of hysterectomy Hx of cholecystectomy Social History Smoking Status: Former smoker ROS ROS ED Constitutional Constitutional ED: Denies chills or fever(s) Eyes Eyes: Denies blurry vision or change in vision ENT ENT ED: Denies rhinorrhea or sore throat Cardiovascular Cardiovascular: Denies chest pain or palpitations Respiratory/Chest Respiratory/Chest: Denies cough or dyspnea Gastrointestinal Gastrointestinal: Reports nausea; Denies vomiting Genitourinary Genitourinary ED: Denies dysuria or hematuria Musculoskeletal Musculoskeletal: Denies back pain or neck pain Integumentary Denies abscess or rash Neurologic Neurologic: Denies headache(s) or weakness Allergic/Immunologic Allergic/Immunologic ED: Denies mouth swelling or urticaria EXAM Physical Exam Const Vital Signs: 02/10/25 16:57 02/10/25 20:59 Temperature 96.9 F L 98 F Temperature Source Temporal Pulse Rate 71 78 Respiratory Rate 16 18 Blood Pressure 190/84 H 149/84 H Blood Pressure Mean 119 105 Pulse Ox 99 98 Oxygen Delivery Method Room Air Positive well nourished and well developed Constitutional Narrative: BMI is 32.0. General Appearance ED: well developed and NAD Neck full ROM and supple Resp normal respiratory effort and clear to auscultation bilaterally Cardio regular rate and regular rhythm GI non-tender and non-distended Palpation: soft Extremity Extremity Narrative: There is tenderness over the popliteal fossa of the left knee. There is also mild tenderness over the proximal lower calf. There is no bony crepitance or step-off. There is no deformity noted. There is limited range of motion of flexion of the left knee secondary to pain. Sensation was intact to light touch bilaterally in lower extremities. Strength is 5/5 bilaterally in the lower extremities. Neuro oriented x3, CN's II-XII intact bilaterally, moves all extremities and no sensory deficits noted Sensorium / Orientation: alert Motor Exam: strength 5/5 throughout Psych mental status grossly normal MDM MDM MDM Narrative Medical decision making narrative: Differential diagnosis includes DVT, muscle strain, tendinitis, and arthritis. Venous duplex of the left lower extremity will be obtained to assess for DVT. Radiography Diagnostic Testing: Clinical Impression(s) from Imaging Studies Venous Duplex 02/10/25 19:24 IMPRESSION: No acute occlusive deep vein thrombosis. Reading Location: [facility] Venous duplex was obtained. There is no evidence of DVT noted. This was interpreted by the radiologist. I also independently reviewed the images and did not see any evidence of DVT. Treatment and Re-Evaluation Narrative: Patient was given a dose of Patten. Patient was advised of her findings. Patient was given a prescription for a short course of Patten. Patient was instructed to continue her nabumetone as prescribed. Patient was instructed to follow-up with her primary care physician in 5 to 7 days for reevaluation. Patient understood and was agreeable with the plan. All questions were answered. Discharge Plan Triage Chief Complaint: Lower Extremity Injury ED Provider: Shawn Edmond Dx/Rx/DC Orders Clinical Impression: Pain in left lower leg, Elevated blood pressure reading Instructions: ED Muscle Strain, Extremity, ED RICE Prescriptions: New hydrocodone-acetaminophen 5-325 mg tablet 1 tab PO Q6H PRN PRN (Reason: Pain) 3 Days Qty: 10 0RF No Action nabumetone 750 mg tablet 750 mg PO BID Patient Comments: take 1 tablet by mouth twice a day if needed for JOINT PAIN or MUSCLE PAIN docusate sodium 100 mg capsule 100 mg PO BID PRN PRN (Reason: Constipation) nebivolol 5 mg tablet 5 mg PO DAILY Patient Comments: take 1 tablet by mouth once daily acetazolamide 500 mg capsule, extended release PO Patient Comments: take 1 capsule by mouth every morning liothyronine 5 MCG tablet 5 mcg PO DAILY esomeprazole magnesium [Nexium] 20 MG capsule 20 mg PO DAILY Patient Comments: acid reflux multivitamin,ay-lach-uegcwhkh [Therems-M] 1 TABLET tablet 1 tab PO DAILY Patient Comments: supplement cholecalciferol (vitamin D3) [Vitamin D3] 1,000 UNIT tablet 2,000 unit PO DAILY Patient Comments: supplement zeaxanthin (bulk) 90 % powder 2 ea PO DAILY estradiol 42.5 GM cream 42.5 g VG .TWICE WEEKLY lutein 20 mg capsule 20 mg PO DAILY Primary Care Provider: Shawn Kohler Referrals: Shawn Kohler MD [Primary Care Provider, Family Practice] - 5-7 Days Print Language: Luxembourgish Disposition Disposition: Home, Self Care Discharge Date/Time: 02/10/25 21:00
[2025-02-10 19:15] VITALS: BMI 32.0
--- NOTE | 2025-02-10 19:24 | US_ITS ---
PROCEDURE: VENOUS DUPLEX IMAG/LIMITED/UNI 02/10/2025 REASON FOR EXAM: Left lower extremity swelling TECHNIQUE: Procedure Code: USVDUL Modality: US Procedure: VENOUS DUPLEX IMAG/LIMITED/UNI FINDINGS: There is no intraluminal echogenicity to suggest the presence of a deep venous thrombosis. Appropriate respiratory variation, augmentation and venous compression is noted. US/Venous Duplex Imag/Limited/Uni IMPRESSION: No acute occlusive deep vein thrombosis. Reading Location: [id number]
[2025-02-10] MEDS: HYDROcodone Bitartrate/Apap 5/325 Tablet PO (20:35)
[2025-02-10 20:59] VITALS: BP 149/84; PULSE 78; RESP 18; TEMP 36.6; O2SAT 98
== END 2025-02-10 21:00 | disposition home or self-care (01) ==
PROVIDERS: Emergency Provider Emergency Medicine; PCP Family Medicine; Visit Provider Emergency Medicine
DX: M79.662 Pain in left lower leg (principal); R03.0 Elevated blood-pressure reading, without diagnosis of hypertension; Z87.891 Personal history of nicotine dependence
CPT/HCPCS: 93971; 99282